=== PATIENT | female | born 1980 | race Caucasian/White ===

== ENCOUNTER 2021-12-24 11:06 | Outpatient (REF) | payer MEDICARE, SELFPAY ==
[2021-12-24 14:06] LABS: Hemoglobin 13.6 g/dl (12.0-16.0); Mean Corpuscular HGB Conc 33.2 g/dl (31.0-35.0); Mean Corpuscular Hemoglobin 29.8 pg (27.0-33.0); Mean Corpuscular Volume 89.9 fL (80.0-98.0); Mean Platelet Volume 9.9 fL (9.4-12.3); Platelet Count 232 X10*3/uL (160-400); Red Blood Count 4.56 X10*6/uL (4.20-5.50); Red Cell Distribution Width 12.9 % (11.0-16.0); White Blood Count 4.9 X10*3/uL (4.8-10.8)
[2021-12-24 14:41] LABS: Alanine Aminotransferase 25 U/L (0-31); Albumin Level 4.3 g/dL (3.5-5.0); Alkaline Phosphatase 46 U/L (39-117); Anion Gap 15 (12-20); Aspartate Amino Transferase 20 U/L (5-31); Bilirubin Total 0.5 mg/dL (0.0-1.0); Blood Urea Nitrogen 20 mg/dL (9-16); Calcium 9.2 mg/dL (8.4-10.2); Carbon Dioxide 26 mmol/L (22-29); Chloride 102 mmol/L (96-108); Cholesterol 222 mg/dL; Estimated Glomerular Filt Rate > 60; Glucose Random 88 mg/dL (60-115); HDL Cholesterol 63 mg/dL; LDL Cholesterol Calculated 147 mg/dl; Potassium 4.2 mmol/L (3.3-5.1); Sodium 139 mmol/L (135-145); Total Protein 7.6 g/dL (6.5-8.0); Triglycerides 63 mg/dL
[2021-12-24 14:46] LABS: TSH reflex Free T4 0.98 uIU/mL (0.32-4.0)
== END 2021-12-24 11:07 | disposition home or self-care (01) ==
LOC: HO.WFDLDS 11:06
PROVIDERS: Visit Provider Hospitalist
DX: Z00.00 Encounter for general adult medical examination without abnormal findings (principal)
CPT/HCPCS: 36415; 80053; 80061; 84443; 85027

== ENCOUNTER 2023-04-08 13:17 | Outpatient (AMB) | payer MEDICARE, SELFPAY ==
[2023-04-08 13:21] VITALS: BP 144/78; PULSE 102; RESP 13; TEMP 36.4; O2SAT 99; BMI 29.7
--- NOTE | 2023-04-08 13:21 | MHC.PC.OV ---
Vital Signs 04/08/23 13:21 04/08/23 13:56 Height 5 ft 6 in Weight 184 lb 4 oz BMI 29.7 BP 144/78 H 130/82 Blood Pressure Location Rt brachial Rt brachial Position Sitting Sitting Respiration 13 Pulse 102 H 84 Pulse Source Pulse Oximeter Auscultation Temp 97.6 F Temp Source Temporal Artery Scan Pulse Oximetry (%) 99 Oxygen Delivery Method Room Air Intake Visit Reasons: Med review-Trans of care Intake Note: Patient states that she no longer has a psychiatrist due to him having a stroke and hes no longer practicing as of right now. Patient states that the records are now being controlled through a 3rd alliance party and patient has to wait for access information in order to receive them. Patient hasn't been able to get any of her meds and would like a referral to psychology as well as her meds to be ordered if possible. Environmental Officer Required: No Accompanied by: Self / Same As Patient Allergies Sulfa (Sulfonamide Antibiotics) [SULFA (SULFONAMIDE ANTIBIOTICS)] Allergy (Intermediate, Verified 04/08/23 13:32) HIVES Tobacco use date assessed: 07/10/22 Dental Screening Dental Screen Date: 04/08/23 Did you have a dental visit in the last 12 months?: Yes Did you have a dental problem in the last 6 months where you did not have access to dental care?: No Was dental information given to patient?: Patient has dentist HPI HPI Comments History of Present Illness Details 42-year-old female presents for transfer of care Her former PCP is who is no longer with the practice. Her last office visit was in July 2022. Her last blood work was over a year ago She has history of ADHD, bipolar 2 disorder, personality disorder, and autism She notes that she ran out of all her meds except for Lorazepam. She is on Capriprazine, dextroamphetamine-amphatamine, lorazepam, vilazodone, and medroxyprogestrone She notes that she was followed by Dr. You, psychiatrist and therapist who has not been practicing since early last last month. She requests a referral to a psychiatrist. She notes that she tried to establish with a new psychiatrist/therapist but her work schedule did not allow She notes that I crashed. I'm in a very bad depression. She notes that she is not motivated to get out of bed or get things done She notes that she exercises at the gym every day [facility] Medical History (Updated 04/08/23 @ 14:08 by Ziggy Morel CNP) Anxiety Depression Personality disorder in adult ADHD Autism Surgical History (Updated 04/08/23 @ 13:33 by Amanda Willingham MA) [place] teeth extracted Family History Father Enlarged prostate Hypertension Obesity No family history of mental disorder Mother Pulmonary embolism Diabetes Sleep apnea No family history of mental disorder Paternal Grandmother Parkinson disease Social History Housing: House Patient Tobacco Use Status: Never used Tobacco e-Cigarette/Vaping Use: Never Used service: No Current occupational status: employed Current occupation: [employer] Cognitive needs: No Hearing needs: No Vision needs: No Questionnaire PHQ-9 Over the last 2 weeks, how often have you been bothered by any of the following problems? 1. Little interest or pleasure in doing things: nearly every day 2. Feeling down, depressed, or hopeless: nearly every day 3. Trouble falling or staying asleep, or sleeping too much: nearly every day 4. Feeling tired or having little energy: not at all 5. Poor appetite or overeating: not at all 6. Feeling bad about yourself - or that you are a failure or have let yourself or your family down: nearly every day 7. Trouble concentrating on things, such as reading the newspaper or watching television: nearly every day 8. Moving or speaking so slowly that other people could have noticed. Or the opposite - being so fidgety or restless that you have been moving around a lot more than usual: not at all 9. Thoughts that you would be better off or of hurting yourself in some way: not at all Total score: 15 Depression Screening Interpretation: Positive Depression Screening Follow-up: Existing condition, In treatment and Community Mental Health Worker F/U Depression Screening Done: Yes 54098 - PHQ-9 Billing: Yes Source: Developed by Drs. Jose L Schwartz, Vanessa Shcmitt, Andrew Walsh and colleagues, with an educational manoj from [employer]. Thrive Questionnaire Date Thrive assessed: 04/08/23 I am a: Patient What is your living situation today?: I have a steady place to live Within the past 12 months, did the food you bought not last and you didn't have the money to get more?: Never true Within the past 12 months, did you worry whether your food would run out before you got money to buy more?: Never true Do you have trouble paying for medicines?: Yes Do you have trouble getting transportation to medical appointments?: No Do you have trouble paying your heating and electricity bill?: No Do you have trouble taking care of your child, family member or friend?: No Do you have trouble with day-to-day activities such as bathing, preparing meals, shopping, managing finances, etc.?: No Are you currently unemployed and looking for a job?: No Are you interested in more education?: No Please select the resources that you would like help with: None Currently or been in a relationship where the following occur: no concerns reported AUDIT C Alcohol Use Questionnaire (AUDIT-C) 1. How often do you have a drink containing alcohol?: Never 3. How often do you have six or more drinks on one occasion?: Never Total Score: 0 AFTAB-7 AMB Questionnaire AFTAB-7 Date AFTAB - 7 assessed: 04/08/23 Feeling nervous, anxious, or on edge: 3 = Nearly every day Not being able to stop or control worryin = Nearly every day Worrying too much about different things: 3 = Nearly every day Trouble relaxin = Nearly every day Being so restless that it is hard to sit still: 3 = Nearly every day Becoming easily annoyed or irritable: 3 = Nearly every day Feeling afraid as if something awful might happen: 3 = Nearly every day Total AFTAB-7 score (0-4 normal; 5-9 mild; 10-14 moderate; 15-21 severe): 21 Source: Developed by Drs. Jose L Schwartz, Vanessa Schmitt, Andrew Walsh and colleagues, with an educational manoj from [employer]. AFTAB-7 Assessment Billing AFTAB-7 Assessment Tool: AFTAB-7 Assessment 83342 Review of Systems Const Details: Const Denies chills, Denies fatigue, Denies fever(s), Denies headache(s) and Denies weakness ENT Denies dizziness and Denies headache(s) Card Denies chest pain, Denies lightheadedness, Denies dyspnea and Denies other (Palpitations) Resp Denies cough, Denies dyspnea, Denies wheezing and Denies other ( shortness of breath) GI Denies abdominal pain, Denies melena, Denies hematochezia, Denies change in bowel habits, Denies dyspepsia and Denies nausea Denies hematuria and Denies dysuria Musc Denies abnormal gait, Denies myalgias, Denies arthralgias, Denies numbness and Denies tingling Skin/Breast Denies rash, Denies unusual bruising and Denies wounds Neuro Denies abnormal gait, Denies dizziness, Denies headache(s), Denies memory loss, Denies numbness, Denies Sensory deficit (Neuro), Denies tingling and Denies weakness Psych Reports anxiety, Reports depression, Denies memory loss Endo Denies cold intolerance, Denies fatigue, Denies heat intolerance, Denies polydipsia and Denies polyuria Aller/Immun Denies wheezing Physical exam (Primary Care) Vital Signs: Last Vital Signs Temp 97.6 F 04/08/23 13:21 Pulse 84 04/08/23 13:56 Resp 13 04/08/23 13:21 BP 130/82 04/08/23 13:56 Pulse Ox 99 04/08/23 13:21 Oxygen Delivery Method Room Air 04/08/23 13:21 BMI result Body Mass Index 29.7 Tobacco/Smoking Status: Tobacco use Status Tobacco use date assessed 07/10/22 04/08/23 13:39 Patient Tobacco Use Status Never used Tobacco 04/08/23 13:39 e-Cigarette/Vaping Use Never Used 04/08/23 13:39 PHQ-9: PHQ-9 Score PHQ-9: Total score 15 04/08/23 13:46 Depression Screening Interpretation: Positive Depression Screening Follow-up: Existing condition, In treatment and Community Mental Health Worker F/U Thrive Assessment: Date of Thrive Assessment Date Thrive assessed 04/08/23 04/08/23 13:39 Currently or been in a relationship where the following occur: no concerns reported Const Other: General: no acute distress and well developed Nutritional Appearance: well nourished Orientation/consciousness: patient oriented x3 HENMT Head: Yes normocephalic and Yes atraumatic Eyes General: appearance normal, both eyes and all related structures Pupils: Equal, round and reactive pupils present EOM: EOMs intact bilaterally Resp Effort & Inspection: normal respiratory effort Auscultation: clear to auscultation bilaterally Cardio Rate: regular rate Rhythm: regular rhythm Heart sounds: S1 normal heart sound present, S2 normal heart sound present, no gallops, no murmurs and no rubs GI Palpation (GI): No Abdominal aortic bruit present, Soft to palpation, nontender, No hepatosplenomegaly present and No Rebound tenderness present Auscultation: normal bowel sounds General: Yes no CVA tenderness Back/Spine/Pelvis Back: no CVA tenderness Cervical Spine: cervical ROM normal and No Cervical spine tenderness Thoracic/Lumbar Spine: thoraco-lumbar ROM normal, No pain with thoraco-lumbar ROM, No thoracic spinal tenderness and No lumbar spinal tenderness Extrem General: Yes normal to inspection, No edema and No calf tenderness Skin General: warm and dry. Normal skin color. Normal skin turgor Neuro General: patient oriented x3, gait normal and no focal neuro deficit Cranial nerves: Yes Equal, round and reactive pupils present Cognition (Neuro): normal cognition Gait exam (Neuro): Normal gait present Sensory Exam: No Sensory deficit (Neuro) Psych Appearance: grossly normal Affect: normal affect Attitude: cooperative Thought process: Normal thought process present Assessment and Plan Assessment & Plan (1) Bipolar 2 disorder: Code(s): F31.81 - Bipolar II disorder Plan: She reports severe depression She has been out of her psychotropic medications PHQ-9 score reveals moderately severe depression and severe anxiety respectively Vilazodone and dextroamphetamine-amphetamine ordered. Take as prescribed Take Ativan as prescribed Routine exercise encouraged She met with the community navigator who will refer her to a psychiatrist/therapist Follow-up in 2 weeks or return sooner with worsening or new symptoms Verbalized understanding and agreed with treatment plan (2) ADHD: Code(s): F90.9 - Attention-deficit hyperactivity disorder, unspecified type Plan: As above (3) Laboratory tests ordered as part of a complete physical exam (CPE): Code(s): Z00.00 - Encounter for general adult medical examination without abnormal findings Plan: Fasting labs ordered as part of a complete physical exam. Advised to fast for at least 10 hours before getting labs drawn. May drink water Verbalized understanding and agreed with treatment plan. Orders: Orders Lipid Panel Today Z00.00 - Encounter for general adult medical examination without abnormal findings UA CC w/rflx Micro + Cult Today Z00.00 - Encounter for general adult medical examination without abnormal findings Complete Blood Count Auto Diff Today Z00.00 - Encounter for general adult medical examination without abnormal findings Comprehensive [place]. Panel Fast Today Z00.00 - Encounter for general adult medical examination without abnormal findings TSH reflex Free T4 Today Z00.00 - Encounter for general adult medical examination without abnormal findings Medications: New dextroamphetamine-amphetamine 20 mg 1 tab PO TID 30 days 90 tabs 0RF Changed From vilazodone must administer with a meal/food 20 mg PO DAILY 90 tabs 0RF To vilazodone must administer with a meal/food 20 mg PO DAILY 30 days 30 tabs 3RF Coding Level of Care Code Est Pt Level 4 (13699) Diagnoses Bipolar 2 disorder F31.81 ADHD F90.9 Laboratory tests ordered as part of a complete physical exam (CPE) Z00.00 Additional Codes AFTAB-7 Assessment Billing - AFTAB-7 Assessment Tool: AFTAB-7 Assessment 89998 ([id number])
[2023-04-08 13:56] VITALS: BP 130/82; PULSE 84
== END 2023-04-08 14:17 | disposition home or self-care (01) ==
PROVIDERS: PCP Nurse Practitioner Family; Visit Provider Nurse Practitioner Family
DX: F31.81 Bipolar II disorder (principal); F90.9 Attention-deficit hyperactivity disorder, unspecified type
CPT/HCPCS: 96127; 99214

== ENCOUNTER 2023-04-24 08:27 | Outpatient (REF) | payer MEDICARE, SELFPAY ==
[2023-04-24 11:40] LABS: MANUAL DIFF FLAG NO
[2023-04-24 11:57] LABS: Basophils Percent Auto 0.7 % (0-2); Eosinophils Absolute Auto 0.1 X10*3/uL (0.0-0.4); Eosinophils Percent Auto 1.3 % (0-4); Hemoglobin 13.6 g/dl (12.0-16.0); Imm Gran Abs Auto 0.01 X10*3/uL (0.00-0.03); Imm Gran Pct Auto 0.2 % (0.0-0.4); Lymphocytes Absolute Auto 1.6 X10*3/uL (1.2-4.9); Lymphocytes Percent Auto 29.8 % (20-40); Mean Corpuscular HGB Conc 33.2 g/dl (31.0-35.0); Mean Corpuscular Hemoglobin 30.3 pg (27.0-33.0); Mean Corpuscular Volume 91.3 fL (80.0-98.0); Mean Platelet Volume 10.2 fL (9.4-12.3); Monocytes Absolute Auto 0.3 X10*3/uL (0.1-1.2); Monocytes Percent Auto 6.3 % (2-11); Neutrophils Absolute Auto 3.3 x10*3/uL (2.0-8.3); Neutrophils Percent Auto 61.7 % (45-73); Platelet Count 215 X10*3/uL (160-400); Red Blood Count 4.49 X10*6/uL (4.20-5.50); Red Cell Distribution Width 13.1 % (11.0-16.0); White Blood Count 5.4 X10*3/uL (4.8-10.8)
[2023-04-24 11:59] LABS: Appearance Urine Cloudy; Color Urine Yellow; Glucose Urine UA Negative (Negative); Leukocyte Esterase Urine Negative (Negative); Nitrite Urine Negative (Negative); Specific Gravity - Urine 1.025 (1.005-1.025); Urine Blood Negative (Negative); Urine Ketones Negative (Negative); Urine Protein Negative (Neg-Trace)
[2023-04-24 13:16] LABS: Alanine Aminotransferase 19 U/L (0-31); Albumin Level 4.2 g/dL (3.5-5.0); Alkaline Phosphatase 51 U/L (39-117); Anion Gap 12 (12-20); Aspartate Amino Transferase 15 U/L (5-31); Bilirubin Total 0.5 mg/dL (0.0-1.0); Blood Urea Nitrogen 19 mg/dL (9-16); Calcium 9.4 mg/dL (8.4-10.2); Carbon Dioxide 26 mmol/L (22-29); Chloride 105 mmol/L (96-108); Cholesterol 188 mg/dL (<200); Estimated Glomerular Filt Rate > 60; Glucose Fasting 87 mg/dL (60-99); HDL Cholesterol 68 mg/dL (>40); LDL Cholesterol Calculated 110 mg/dL (<100); Potassium 3.8 mmol/L (3.3-5.1); Sodium 139 mmol/L (135-145); Total Protein 7.4 g/dL (6.5-8.0); Triglycerides 50 mg/dL (<150)
== END 2023-04-24 08:28 | disposition home or self-care (01) ==
LOC: HO.HMGCLDS 08:27
PROVIDERS: PCP Nurse Practitioner Family; Visit Provider Nurse Practitioner Family
DX: Z00.00 Encounter for general adult medical examination without abnormal findings (principal)
CPT/HCPCS: 36415; 80053; 80061; 81003; 84443; 85025

== ENCOUNTER 2023-04-28 08:05 | Outpatient (AMB) | payer MEDICARE, SELFPAY ==
[2023-04-28 08:10] VITALS: BP 114/70; PULSE 56; RESP 13; TEMP 36.5; O2SAT 99; BMI 29.7
--- NOTE | 2023-04-28 08:10 | MHC.PC.OV ---
Vital Signs 04/28/23 08:10 Height 5 ft 6 in Weight 184 lb 2 oz BMI 29.7 BP 114/70 Blood Pressure Location Rt brachial Position Sitting Respiration 13 Pulse 56 Pulse Source Pulse Oximeter Temp 97.7 F Temp Source Temporal Artery Scan Pulse Oximetry (%) 99 Oxygen Delivery Method Room Air Intake Visit Reasons: f/u bipolar and ADHD Intake Note: Patient states that she has a psychiatrist appt next month and is concerned that she may run out of her meds before that appt. Case Sealer Required: No Accompanied by: Self / Same As Patient Allergies Sulfa (Sulfonamide Antibiotics) [SULFA (SULFONAMIDE ANTIBIOTICS)] Allergy (Intermediate, Verified 04/28/23 08:19) HIVES Medication List - Last Reconciled 04/28/23 by Ziggy Morel CNP aspirin 81 mg PO DAILY dextroamphetamine-amphetamine 20 mg 1 tab PO TID 30 days lorazepam 1 mg PO TID PRN medroxyprogesterone 10 mg PO DAILY vilazodone 20 mg PO DAILY 30 days Tobacco use date assessed: 07/10/22 Dental Screening Dental Screen Date: 04/28/23 Did you have a dental visit in the last 12 months?: Yes Did you have a dental problem in the last 6 months where you did not have access to dental care?: No Was dental information given to patient?: Patient has dentist HPI HPI Comments History of Present Illness Details 42-year-old female presents for anxiety, depression, bipolar, and ADHD follow-up She transferred care about 3 weeks ago Vilazodone and dextroamphetamine-amphetamine re-ordered as she was out of the medications x 1 month. She is also on PRN Lorazepam. She admits to taking her medications as prescribed without adverse reactions She notes significant improvement of her mood symptoms. She states that she is still depressed. She denies SI/HI, VH/AH. No sleep disturbance, no loss of appetite or weight loss She notes she has an appointment with a applied psychology professor next month [facility] Medical History (Updated 04/28/23 @ 08:22 by Ziggy Morel CNP) Anxiety Depression Personality disorder in adult ADHD Autism Surgical History [place] teeth extracted Family History Father Enlarged prostate Hypertension Obesity No family history of mental disorder Mother Pulmonary embolism Diabetes Sleep apnea No family history of mental disorder Paternal Grandmother Parkinson disease Social History Housing: House Patient Tobacco Use Status: Never used Tobacco e-Cigarette/Vaping Use: Never Used service: No Current occupational status: employed Current occupation: [employer] Cognitive needs: No Hearing needs: No Vision needs: No Questionnaire PHQ-9 Over the last 2 weeks, how often have you been bothered by any of the following problems? 1. Little interest or pleasure in doing things: not at all 2. Feeling down, depressed, or hopeless: several days 3. Trouble falling or staying asleep, or sleeping too much: not at all 4. Feeling tired or having little energy: not at all 5. Poor appetite or overeating: several days 6. Feeling bad about yourself - or that you are a failure or have let yourself or your family down: more than half the days 7. Trouble concentrating on things, such as reading the newspaper or watching television: not at all 8. Moving or speaking so slowly that other people could have noticed. Or the opposite - being so fidgety or restless that you have been moving around a lot more than usual: not at all 9. Thoughts that you would be better off or of hurting yourself in some way: not at all Total score: 4 Depression Screening Interpretation: Negative Depression Screening Done: Yes 30106 - PHQ-9 Billing: Yes Source: Developed by Drs. Jose L Schwartz, Vanessa Schmitt, Andrew Walsh and colleagues, with an educational manoj from [employer]. Thrive Questionnaire Date Thrive assessed: 04/08/23 AFTAB-7 AMB Questionnaire AFTAB-7 Date AFTAB - 7 assessed: 04/28/23 Feeling nervous, anxious, or on edge: 2 = More than half the days Not being able to stop or control worryin = More than half the days Worrying too much about different things: 2 = More than half the days Trouble relaxin = More than half the days Being so restless that it is hard to sit still: 2 = More than half the days Becoming easily annoyed or irritable: 1 = Several days Feeling afraid as if something awful might happen: 3 = Nearly every day Total AFTAB-7 score (0-4 normal; 5-9 mild; 10-14 moderate; 15-21 severe): 14 Source: Developed by Drs. Jose L Schwartz, Vanessa Schmitt, Andrew Walsh and colleagues, with an educational manoj from [employer]. AFTAB-7 Assessment Billing AFTAB-7 Assessment Tool: AFTAB-7 Assessment 63530 Review of Systems Const Details: Const Denies chills, Denies fatigue, Denies fever(s), Denies headache(s) and Denies weakness ENT Denies dizziness and Denies headache(s) Card Denies chest pain, Denies lightheadedness, Denies dyspnea and Denies other (Palpitations) Resp Denies cough, Denies dyspnea, Denies wheezing and Denies other ( shortness of breath) GI Denies abdominal pain, Denies melena, Denies hematochezia, Denies change in bowel habits, Denies dyspepsia and Denies nausea Denies hematuria and Denies dysuria Musc Denies abnormal gait, Denies myalgias, Denies arthralgias, Denies numbness and Denies tingling Skin/Breast Denies rash, Denies unusual bruising and Denies wounds Neuro Denies abnormal gait, Denies dizziness, Denies headache(s), Denies memory loss, Denies numbness, Denies Sensory deficit (Neuro), Denies tingling and Denies weakness Psych Denies anxiety, Reports depression, Denies memory loss Endo Denies cold intolerance, Denies fatigue, Denies heat intolerance, Denies polydipsia and Denies polyuria Aller/Immun Denies wheezing Physical exam (Primary Care) Vital Signs: Last Vital Signs Temp 97.7 F 04/28/23 08:10 Pulse 56 04/28/23 08:10 Resp 13 04/28/23 08:10 BP 114/70 04/28/23 08:10 Pulse Ox 99 04/28/23 08:10 Oxygen Delivery Method Room Air 04/28/23 08:10 BMI result Body Mass Index 29.7 Tobacco/Smoking Status: Tobacco use Status Tobacco use date assessed 07/10/22 04/08/23 13:39 Patient Tobacco Use Status Never used Tobacco 04/08/23 13:39 e-Cigarette/Vaping Use Never Used 04/08/23 13:39 Depression Screening Interpretation: Negative Thrive Assessment: Date of Thrive Assessment Date Thrive assessed 04/08/23 04/08/23 14:37 Const Other: General: no acute distress and well developed Nutritional Appearance: well nourished Orientation/consciousness: patient oriented x3 [facility] Head: Yes normocephalic and Yes atraumatic Eyes General: appearance normal, both eyes and all related structures Pupils: Equal, round and reactive pupils present EOM: EOMs intact bilaterally Resp Effort & Inspection: normal respiratory effort Auscultation: clear to auscultation bilaterally Cardio Rate: regular rate Rhythm: regular rhythm Heart sounds: S1 normal heart sound present, S2 normal heart sound present, no gallops, no murmurs and no rubs GI Palpation (GI): No Abdominal aortic bruit present, Soft to palpation, nontender, No hepatosplenomegaly present and No Rebound tenderness present Auscultation: normal bowel sounds General: Yes no CVA tenderness Back/Spine/Pelvis Back: no CVA tenderness Cervical Spine: cervical ROM normal and No Cervical spine tenderness Thoracic/Lumbar Spine: thoraco-lumbar ROM normal, No pain with thoraco-lumbar ROM, No thoracic spinal tenderness and No lumbar spinal tenderness Extrem General: Yes normal to inspection, No edema and No calf tenderness Skin General: warm and dry. Normal skin color. Normal skin turgor Lesions: no lesions Rashes: no rashes Trauma: no lacerations or abrasions Wounds: no wounds Nails: normal Neuro General: patient oriented x3, gait normal and no focal neuro deficit Cranial nerves: Yes Equal, round and reactive pupils present Cognition (Neuro): normal cognition Gait exam (Neuro): Normal gait present Sensory Exam: No Sensory deficit (Neuro) Psych Appearance: grossly normal Affect: normal affect Attitude: cooperative Thought process: Normal thought process present Assessment and Plan Assessment & Plan (1) Anxiety: Code(s): F41.9 - Anxiety disorder, unspecified Plan: Reports significant improvement of her symptoms but continues to feel depressed AFTAB-7 score is normal. PHQ-9 score reveals moderate depression Continue current treatment regimen. Instructed that the medication may take 4-6 weeks to be therapeutic Routine exercise encouraged Follow-up in 2 weeks or return sooner with worsening or new symptoms She has a follow-up appointment with Psychiatry in a month Verbalized understanding and agreed with treatment plan Recent labs reviewed with the patient; unremarkable findings (2) Depression: Code(s): F32.A - Depression, unspecified Plan: As above (3) Severe bipolar II disorder, depressed, with anxious distress: Code(s): F31.81 - Bipolar II disorder Plan: As above (4) ADHD: Code(s): F90.9 - Attention-deficit hyperactivity disorder, unspecified type Plan: As above Coding Level of Care Code Est Pt Level 3 (42621) Diagnoses Anxiety F41.9 Depression F32.A Severe bipolar II disorder, depressed, with anxious distress F31.81 ADHD F90.9 Additional Codes AFTAB-7 Assessment Billing - AFTAB-7 Assessment Tool: AFTAB-7 Assessment [id number] ([id number])
== END 2023-04-28 08:40 | disposition home or self-care (01) ==
PROVIDERS: PCP Nurse Practitioner Family; Visit Provider Nurse Practitioner Family
DX: F41.9 Anxiety disorder, unspecified (principal); F31.81 Bipolar II disorder; F90.9 Attention-deficit hyperactivity disorder, unspecified type
CPT/HCPCS: 99213

== ENCOUNTER 2023-09-04 11:44 | Outpatient (AMB) | payer MEDICARE, SELFPAY ==
--- NOTE | 2023-09-04 11:47 | A.OFFPC_ITS ---
Vital Signs 09/04/23 11:48 Height 5 ft 6 in Weight 183 lb 8 oz BMI 29.6 BP 102/70 Blood Pressure Location Rt brachial Position Sitting Respiration 14 Pulse 81 Pulse Source Pulse Oximeter Temp 97.6 F Temp Source Temporal Artery Scan Pulse Oximetry (%) 99 Oxygen Delivery Method Room Air Intake Visit Reasons: Follow up mental health Vessel Liner Required: No Accompanied by: Self / Same As Patient Allergies Sulfa (Sulfonamide Antibiotics) [SULFA (SULFONAMIDE ANTIBIOTICS)] Allergy (Intermediate, Verified 09/04/23 12:00) HIVES Medication List - Last Reconciled 09/04/23 by Ziggy Morel CNP aripiprazole (Abilify) 15 mg PO DAILY aspirin 81 mg PO DAILY hydroxyzine pamoate (Vistaril) 25 mg PO BID PRN medroxyprogesterone 10 mg PO DAILY olanzapine (Zyprexa) 5 mg PO DAILY propranolol 20 mg PO BID Tobacco use date assessed: 09/04/23 Dental Screening Dental Screen Date: 09/04/23 Did you have a dental visit in the last 12 months?: Yes Did you have a dental problem in the last 6 months where you did not have access to dental care?: No Was dental information given to patient?: Patient has dentist HPI HPI Comments History of Present Illness Details 43-year-old female presents for updated diagnoses of schizoaffective disorder bipolar type, generalized anxiety disorder, PTSD, alcohol use disorder, and cannabis use disorder She notes that she established care with [facility] and is followed by a psychiatrist every 2 weeks and therapist weekly She is on Abilify, hydroxyzine, olanzapine, and propranolol. She admits to taking her medications as prescribed without adverse reactions She reports improved anxiety, depressive symptoms No SI, HI, AVH No acute symptoms She was admitted in inpatient psychiatry [facility] for 22 days for SI. Prior to that admission, she was in Rehab for 7 days for excessive alcohol consumption. She is currently at a partial program at [place] and will be there for a total of 2 weeks, ending next week. She has not drank alcohol since she was admitted on 07/31/2023. She has been out of work, leave of absence, during her treatment and wants to return by September 20. She requests clearance form signed from her employer to return to work. 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 1. Little interest or pleasure in doing things: several days 2. Feeling down, depressed, or hopeless: not at all 3. Trouble falling or staying asleep, or sleeping too much: more than half the days 4. Feeling tired or having little energy: several days 5. Poor appetite or overeating: not at all 6. Feeling bad about yourself - or that you are a failure or have let yourself or your family down: not at all 7. Trouble concentrating on things, such as reading the newspaper or watching television: several days 8. Moving or speaking so slowly that other people could have noticed. Or the opposite - being so fidgety or restless that you have been moving around a lot more than usual: not at all 9. Thoughts that you would be better off or of hurting yourself in some way: not at all Total score: 5 Depression Screening Interpretation: Negative Depression Screening Done: Yes 97009 - PHQ-9 Billing: Yes Source: Developed by Drs. Jose L Schwartz, Vanessa Schmitt, Andrew Walsh and colleagues, with an educational manoj from [employer]. Thrive Questionnaire Date Thrive assessed: 04/08/23 AFTAB-7 AMB Questionnaire AFTAB-7 Date AFTAB - 7 assessed: 09/04/23 Feeling nervous, anxious, or on edge: 1 = Several days Not being able to stop or control worryin = Several days Worrying too much about different things: 1 = Several days Trouble relaxin = Several days Being so restless that it is hard to sit still: 1 = Several days Becoming easily annoyed or irritable: 1 = Several days Feeling afraid as if something awful might happen: 1 = Several days Total AFTAB-7 score (0-4 normal; 5-9 mild; 10-14 moderate; 15-21 severe): 7 Source: Developed by Drs. Jose L Schwartz, Vanessa Schmitt, Andrew Walsh and colleagues, with an educational manoj from [employer]. AFTAB-7 Assessment Billing AFTAB-7 Assessment Tool: AFTAB-7 Assessment 13207 Review of Systems Const Details: Const Denies chills, Denies fatigue, Denies fever(s), Denies headache(s) and Denies weakness ENT Denies dizziness and Denies headache(s) Card Denies chest pain, Denies lightheadedness, Denies dyspnea and Denies other (Palpitations) Resp Denies cough, Denies dyspnea, Denies wheezing and Denies other ( shortness of breath) GI Denies abdominal pain, Denies melena, Denies hematochezia, Denies change in bowel habits, Denies dyspepsia and Denies nausea Denies hematuria and Denies dysuria Musc Denies abnormal gait, Denies myalgias, Denies arthralgias, Denies numbness and Denies tingling Skin/Breast Denies rash, Denies unusual bruising and Denies wounds Neuro Denies abnormal gait, Denies dizziness, Denies headache(s), Denies memory loss, Denies numbness, Denies Sensory deficit (Neuro), Denies tingling and Denies weakness Psych Denies anxiety, Denies depression, Denies memory loss Endo Denies cold intolerance, Denies fatigue, Denies heat intolerance, Denies polydipsia and Denies polyuria Aller/Immun Denies wheezing Physical exam (Primary Care) Vital Signs: Last Vital Signs Temp 97.6 F 09/04/23 11:48 Pulse 81 09/04/23 11:48 Resp 14 09/04/23 11:48 BP 102/70 09/04/23 11:48 Pulse Ox 99 09/04/23 11:48 Oxygen Delivery Method Room Air 09/04/23 11:48 BMI result Body Mass Index 29.6 Tobacco/Smoking Status: Tobacco use Status Tobacco use date assessed 09/04/23 09/04/23 12:00 Patient Tobacco Use Status Never used Tobacco 09/04/23 12:00 e-Cigarette/Vaping Use Never Used 09/04/23 12:00 PHQ-9: PHQ-9 Score PHQ-9: Total score 5 09/04/23 12:00 Depression Screening Interpretation: Negative Thrive Assessment: Date of Thrive Assessment Date Thrive assessed 04/08/23 09/04/23 12:00 Const Other: General: no acute distress and well developed Nutritional Appearance: well nourished Orientation/consciousness: patient oriented x3 HENMT Head: Yes normocephalic and Yes atraumatic Eyes General: appearance normal, both eyes and all related structures Pupils: Equal, round and reactive pupils present EOM: EOMs intact bilaterally Resp Effort & Inspection: normal respiratory effort Auscultation: clear to auscultation bilaterally Cardio Rate: regular rate Rhythm: regular rhythm Heart sounds: S1 normal heart sound present, S2 normal heart sound present, no gallops, no murmurs and no rubs GI Palpation (GI): No Abdominal aortic bruit present, Soft to palpation, nontender, No hepatosplenomegaly present and No Rebound tenderness present Auscultation: normal bowel sounds General: Yes no CVA tenderness Back/Spine/Pelvis Back: no CVA tenderness Cervical Spine: cervical ROM normal and No Cervical spine tenderness Thoracic/Lumbar Spine: thoraco-lumbar ROM normal, No pain with thoraco-lumbar ROM, No thoracic spinal tenderness and No lumbar spinal tenderness Extrem General: Yes normal to inspection, No edema and No calf tenderness Skin General: warm and dry. Normal skin color. Normal skin turgor Neuro General: patient oriented x3, gait normal and no focal neuro deficit Cranial nerves: Yes Equal, round and reactive pupils present Cognition (Neuro): normal cognition Gait exam (Neuro): Normal gait present Sensory Exam: No Sensory deficit (Neuro) Psych Appearance: grossly normal Affect: normal affect Attitude: cooperative Thought process: Normal thought process present Assessment and Plan Assessment & Plan (1) Schizoaffective disorder, bipolar type: Code(s): F25.0 - Schizoaffective disorder, bipolar type Plan: Reports improved symptoms on current treatment regimen She has not drank alcohol since 07/31/2023 No acute symptoms PHQ-9 and AFTAB-7 scores revealed mild depression and anxiety Continue current treatment regimen Follow-up with psychiatrist and therapist as planned Routine exercise encouraged Leave of absence form from her employer signed for patient to return to work on 09/21/2023 Return in 1 month for an extended physical exam or sooner with symptoms or concerns Verbalized understanding and agreed with treatment plan (2) Alcohol use disorder: Code(s): F10.90 - Alcohol use, unspecified, uncomplicated Plan: As above (3) Generalized anxiety disorder: Code(s): F41.1 - Generalized anxiety disorder Plan: As above (4) PTSD (post-traumatic stress disorder): Code(s): F43.10 - Post-traumatic stress disorder, unspecified Plan: As above (5) Cannabis use disorder: Code(s): F12.90 - Cannabis use, unspecified, uncomplicated Plan: As above Coding Level of Care Code Est Pt Level 4 (89994) Complex EM visit Add On G2211 Diagnoses Schizoaffective disorder, bipolar type F25.0 Alcohol use disorder F10.90 Generalized anxiety disorder F41.1 PTSD (post-traumatic stress disorder) F43.10 Cannabis use disorder F12.90 Additional Codes AFTAB-7 Assessment Billing - AFTAB-7 Assessment Tool: AFTAB-7 Assessment 76127 ([id number])
[2023-09-04 11:48] VITALS: BP 102/70; PULSE 81; RESP 14; TEMP 36.4; O2SAT 99; BMI 29.6
== END 2023-09-04 12:40 | disposition home or self-care (01) ==
PROVIDERS: PCP Nurse Practitioner Family; Visit Provider Nurse Practitioner Family
DX: F25.0 Schizoaffective disorder, bipolar type (principal); F10.90 Alcohol use, unspecified, uncomplicated; F41.1 Generalized anxiety disorder; F43.10 Post-traumatic stress disorder, unspecified; F12.90 Cannabis use, unspecified, uncomplicated
CPT/HCPCS: 99214; G2211

== ENCOUNTER 2024-01-12 09:50 | Outpatient (AMB) | payer MEDICARE, SELFPAY ==
--- NOTE | 2024-01-12 10:25 | MHC.OFFWIV ---
Intake Vital Signs 01/12/24 10:27 Height 5 ft 6 in Weight 183 lb BMI 29.5 BP 122/80 Blood Pressure Location Rt brachial Position Sitting Pulse 84 Pulse Source Pulse Oximeter Temp 98.8 F Temp Source Oral Pulse Oximetry (%) 98 Oxygen Delivery Method Room Air Intake Visit Reasons: EP tested+ for covid PT in car [phone] Intake Note: Patient here because she tested positive for covid this morning and is looking to get paxlovid. Patient Tobacco Use Status: Never used Tobacco Allergies Sulfa (Sulfonamide Antibiotics) [SULFA (SULFONAMIDE ANTIBIOTICS)] Allergy (Intermediate, Verified 01/12/24 10:26) HIVES Do you need a note to return to daycare/school/sports/work: No HPI HPI Comments History of Present Illness Details Patient is a 43yo F who presents to office with covid She has hx of daily alcohol use, cannabis use disorder, PTSD, Anxiety She states she tested + for COVID today Her + and had paxlovid and it helped She said yesterday night onset Fever, chills, body aches, fatigue Minimal cough and congestion No other complaints No improving or worsening symptoms No pain, 0/10 PFSH Medical History Anxiety Depression Personality disorder in adult ADHD Autism Surgical History [place] teeth extracted Family History Father Enlarged prostate Hypertension Obesity No family history of mental disorder Mother Pulmonary embolism Diabetes Sleep apnea No family history of mental disorder Paternal Grandmother Parkinson disease Social History Housing: House Patient Tobacco Use Status: Never used Tobacco e-Cigarette/Vaping Use: Never Used service: No Current occupational status: employed 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 [employer] Cognitive needs: No Hearing needs: No Vision needs: No Review of Systems Const Reports body aches, Reports chills, Reports fatigue, Reports fever(s) and Denies headache(s) ENT Denies dizziness, Denies headache(s) and Reports nasal congestion Card Denies chest pain, Denies syncope and Denies dyspnea Resp Reports cough and Denies dyspnea GI Denies vomiting Neuro Denies dizziness, Denies syncope and Denies headache(s) Endo Reports fatigue Physical Exam Vital Signs: Last Vital Signs Temp 98.8 F 01/12/24 10:27 Pulse 84 01/12/24 10:27 BP 122/80 01/12/24 10:27 Pulse Ox 98 01/12/24 10:27 Oxygen Delivery Method Room Air 01/12/24 10:27 BMI result Body Mass Index 29.5 General: Non-toxic, NAD. Speaking full sentences. Skin: Warm dry throughout Eye: EOMI HENT: Airway patent. Uvula midline. No pharyngeal erythema or edema. No EXECUTIVE COACH. Bilateral canals clear. TM non-erythematous, non-bulging. No TM perforation or hemotympanum noted. Respiratory: CTA bilaterally. No wheezes, rales or rhonchi Cardiac: RRR. No murmur MSK: Full ROM extremities. Neurology: A/O. No aphasia or facial droop. Gait without abnormality Psych: Good mood and affect Assessment & Plan Assessment & Plan (1) COVID: Code(s): U07.1 - COVID-19 Plan: Patient seen and evaluated. Denies needing confirmatory test No PMH consistent with cardiac or lung pathology; discussed paxlovid and decided against Discussed fluid hydration with water or pedialyte to replace electrolytes Increase fluids and rest Discussed quarantine and pt will follow guidelines Patient gave verbal understanding and had no additional questions or concerns at time of discharge All questions answered Coding Level of Care Code Est Pt Level 3 (13247) Diagnoses COVID U07.1
[2024-01-12 10:27] VITALS: BP 122/80; PULSE 84; TEMP 37.1; O2SAT 98; BMI 29.5
== END 2024-01-12 11:17 | disposition home or self-care (01) ==
PROVIDERS: PCP Nurse Practitioner Family; Visit Provider Physician Assistant
DX: U07.1 COVID-19 (principal)

== ENCOUNTER → 2024-01-12 09:50 | Outpatient (BNVA) | payer MEDICARE, SELFPAY | PROVIDERS: PCP Nurse Practitioner Family; Visit Provider Physician Assistant | DX: U07.1 COVID-19 (principal) | CPT/HCPCS: 99212 ==

== ENCOUNTER 2024-02-04 08:01 | Outpatient (AMB) | payer OTHER, SELFPAY ==
--- NOTE | 2024-02-04 08:07 | A.OFFPC_ITS ---
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 Service Required: No Is last menstrual period known: No (on the depo) Post menopausal: No Patient : No Allergies Sulfa (Sulfonamide Antibiotics) [SULFA (SULFONAMIDE ANTIBIOTICS)] Allergy (Intermediate, Verified 02/04/24 08:24) HIVES Medication List - Last Reconciled 02/04/24 by Ziggy Morel CNP aripiprazole (Abilify) 15 mg PO DAILY aspirin 81 mg PO DAILY hydroxyzine pamoate (Vistaril) 25 mg PO BID PRN medroxyprogesterone 10 mg PO DAILY propranolol 20 mg PO BID Tobacco use date assessed: 09/04/23 Dental Screening Dental Screen Date: 02/04/24 Did you have a dental visit in the last 12 months?: Yes Did you have a dental problem in the last 6 months where you did not have access to dental care?: No Was dental information given to patient?: Patient has dentist HPI HPI Comments History of Present Illness Details 43-year-old female presents for an exten ded physical exam She has past medical history significant for schizoaffective disorder bipolar type, generalized anxiety disorder, PTSD, alcohol use disorder in remission, and cannabis use disorder She is followed by a psychiatrist at [facility] every 2 weeks and therapist weekly She is on Abilify, hydroxyzine, propranolol, aspirin, and medroxyprogesterone. She admits to taking her medications as prescribed without adverse reactions She reports improved anxiety, depressive symptoms. She generally sleeps well She has been making healthy lifestyle changes. She has not drank alcohol since 07/31/2023 No SI, HI, AVH No acute symptoms at this time Nonsmoker. Does not drink alcohol. She consumes cannabis gummies twice weekly She has never had an eye exam Last Pap smear test was with [facility] last year: normal Last Tdap injection was 2 years ago She has not received the covid vaccine this season and requests the vaccine. She intends to get the covid booster [facility] Medical History Anxiety Depression Personality disorder in adult ADHD Autism Surgical History [place] teeth extracted Family History (Updated 02/04/24 @ 08:13 by Edna Otero MA) Father Enlarged prostate Hypertension Obesity No family history of mental disorder Mother Pulmonary embolism Diabetes Sleep apnea No family history of mental disorder FH: mental illness Paternal Grandmother Parkinson disease Maternal Grandfather Alcohol abuse Social History (Updated 02/04/24 @ 08:13 by Edna Otero MA) Housing: House Patient Tobacco Use Status: Never used Tobacco e-Cigarette/Vaping Use: Never Used Second Hand Smoke Exposure: No Substance Use Type: Marijuana service: No Current occupational status: employed Current occupation: [employer] Cognitive needs: No Hearing needs: No Vision needs: No Questionnaire PHQ-9 Over the last 2 weeks, how often have you been bothered by any of the following problems? 1. Little interest or pleasure in doing things: not at all 2. Feeling down, depressed, or hopeless: not at all 3. Trouble falling or staying asleep, or sleeping too much: not at all 4. Feeling tired or having little energy: not at all 5. Poor appetite or overeating: not at all 6. Feeling bad about yourself - or that you are a failure or have let yourself or your family down: not at all 7. Trouble concentrating on things, such as reading the newspaper or watching television: not at all 8. Moving or speaking so slowly that other people could have noticed. Or the opposite - being so fidgety or restless that you have been moving around a lot more than usual: not at all 9. Thoughts that you would be better off or of hurting yourself in some way: not at all Total score: 0 Depression Screening Interpretation: Negative Depression Screening Done: Yes 01674 - PHQ-9 Billing: Yes Source: Developed by Drs. Jose L Schwartz, Vanessa Schmitt, Andrew Walsh and colleagues, with an educational manoj from [employer]. Thrive Questionnaire Date Thrive assessed: 02/04/24 I am a: Patient What is your living situation today?: I have a steady place to live Within the past 12 months, did the food you bought not last and you didn't have the money to get more?: Never true Within the past 12 months, did you worry whether your food would run out before you got money to buy more?: Never true Do you have trouble paying for medicines?: No Do you have trouble getting transportation to medical appointments?: No Do you have trouble paying your heating and electricity bill?: No Do you have trouble taking care of your child, family member or friend?: No Do you have trouble with day-to-day activities such as bathing, preparing meals, shopping, managing finances, etc.?: No Are you currently unemployed and looking for a job?: No Are you interested in more education?: No Please select the resources that you would like help with: None Currently or been in a relationship where the following occur: No concerns reported THRIVE Score: 0 AUDIT C Alcohol Use Questionnaire (AUDIT-C) 1. How often do you have a drink containing alcohol?: Never 3. How often do you have six or more drinks on one occasion?: Never Total Score: 0 AFTAB-7 AMB Questionnaire AFTAB-7 Date AFTAB - 7 assessed: 02/04/24 Feeling nervous, anxious, or on edge: 0 = Not at all Not being able to stop or control worryin = Not at all Worrying too much about different things: 0 = Not at all Trouble relaxin = Not at all Being so restless that it is hard to sit still: 0 = Not at all Becoming easily annoyed or irritable: 0 = Not at all Feeling afraid as if something awful might happen: 0 = Not at all Total AFTAB-7 score (0-4 normal; 5-9 mild; 10-14 moderate; 15-21 severe): 0 Source: Developed by Drs. Jose L Schwartz, Vanessa Schmitt, Andrew Walsh and colleagues, with an educational manoj from [employer]. AFTAB-7 Assessment Billing AFTAB-7 Assessment Tool: AFTAB-7 Assessment 93955 Review of Systems Const Details: Denies chills, Denies fatigue, Denies fever(s), Denies headache(s) and Denies weakness HEENT Denies change in vision, Denies dizziness, Denies headache(s), Denies hearing loss, Denies nasal congestion, Denies sinus pain, Denies sinus pressure and Denies sore throat Card Denies chest pain, Denies lightheadedness, Denies dyspnea and Denies other (palpitations) Resp Denies cough, Denies dyspnea and Denies wheezing GI Denies abdominal pain, Denies melena, Denies hematochezia, Denies change in bowel habits, Denies dyspepsia and Denies nausea Denies hematuria and Denies dysuria Musc Denies abnormal gait, Denies myalgias, Denies arthralgias, Denies numbness and Denies tingling Skin/Breast Denies rash, Denies unusual bruising and Denies wounds Neuro Denies abnormal gait, Denies dizziness, Denies headache(s), Denies memory loss, Denies numbness, Denies Sensory deficit (Neuro), Denies tingling and Denies weakness Psych Denies anxiety, Denies depression and Denies memory loss Endo Denies cold intolerance, Denies fatigue, Denies heat intolerance, Denies polydipsia and Denies polyuria [place]/Lymph Denies easy bleeding and Denies easy bruising Aller/Immun Denies wheezing Physical exam (Primary Care) Vital Signs: Last Vital Signs Temp 98.0 F 02/04/24 08:14 Pulse 72 02/04/24 08:14 Resp 16 02/04/24 08:14 BP 108/62 02/04/24 08:14 Pulse Ox 97 02/04/24 08:14 Oxygen Delivery Method Room Air 02/04/24 08:14 BMI result Body Mass Index 29.9 Tobacco/Smoking Status: Tobacco use Status Tobacco use date assessed 09/04/23 02/04/24 08:10 Patient Tobacco Use Status Never used Tobacco 02/04/24 08:13 e-Cigarette/Vaping Use Never Used 02/04/24 08:13 PHQ-9: PHQ-9 Score PHQ-9: Total score 0 02/04/24 08:30 Depression Screening Interpretation: Negative Thrive Assessment: Date of Thrive Assessment Date Thrive assessed 02/04/24 02/04/24 08:14 Currently or been in a relationship where the following occur: No concerns reported Const Other: General: no acute distress, well developed, alert and awake Nutritional Appearance: well nourished Orientation/consciousness: patient oriented x3 HENMT Head: Yes normocephalic and Yes atraumatic Ears: hearing grossly normal bilaterally and TM's normal bilaterally General nose exam: Normal external nose present and Normal nares present Mouth: Normal oral and palatal mucosa present and moist mucous membranes Teeth and gingiva: dentition normal Throat: Yes oropharynx normal Eyes Pupils: Equal, round and reactive pupils present and Pupil accommodation reflex normal EOM: EOMs intact bilaterally Neck Neck: Yes normal visual inspection, Yes no lymphadenopathy and Yes trachea midline Thyroid: Thyroid normal Carotids: no bruits Lymphatic: no lymphadenopathy noted Chest Chest palpation & inspection: normal inspection of the chest Resp Effort & Inspection: normal respiratory effort Auscultation: clear to auscultation bilaterally Cardio Rate: regular rate Rhythm: regular rhythm Heart sounds: S1 normal heart sound present, S2 normal heart sound present, no gallops, no murmurs and no rubs Bruits: no abdominal aortic bruits and no carotid bruits GI Palpation (GI): No Abdominal aortic bruit present, Soft to palpation, nontender, No hepatosplenomegaly present and No Rebound tenderness present Auscultation: normal bowel sounds General: Yes no CVA tenderness Back/Spine/Pelvis Back: no CVA tenderness Cervical Spine: cervical ROM normal and No Cervical spine tenderness Thoracic/Lumbar Spine: thoraco-lumbar ROM normal, No pain with thoraco-lumbar ROM, No thoracic spinal tenderness and No lumbar spinal tenderness Skin General: warm and dry. Normal skin color. Normal skin turgor Lesions: no lesions Rashes: no rashes Trauma: no lacerations or abrasions Wounds: no wounds Nails: normal Neuro General: patient oriented x3, gait normal and CN's II-XI intact bilaterally Cranial nerves: Yes Equal, round and reactive pupils present Cognition (Neuro): normal cognition Gait exam (Neuro): Normal gait present Motor exam (neuro): 5/5 motor strength present throughout Sensory Exam: No Sensory deficit (Neuro) Deep tendon reflexes (DTR's): Right patellar reflex intensity grade: 2+ and Left patellar reflex intensity grade: 2+ Extrem General: Yes normal to inspection, No edema and No calf tenderness Psych Appearance: grossly normal Affect: normal affect Attitude: cooperative Thought process: Normal thought process present Office Procedures Flu Questionnaire Does the patient have a severe egg allergy?: No Does the patient have severe life threatening allergies?: No Does the patient have a fever or illness today?: No Has the patient ever had Guillain-Blaine Syndrome?: No Has the patient ever had any past reaction to a flu shot?: No Immunizations Fluarix Triv [id number] (PF) 45 mcg (15 mcg x 3)/0.5 mL IM syringe Performing Provider: Ziggy Morel CNP Performing Location: [facility] [place] [facility] Administered by: Gali Isbell RN on 02/04/24 08:51 Dose Route Admin Location Dispensed Lot Number Expiration Date [facility] Information Strategist 0.5 mL IM Left Deltoid 0.5 mL [id number] 10/03/24 01720-122-56 [place] VIS Given Date VIS Provided VIS Publication Date 02/04/24 Single Vaccine 20 Eligibility Eligibility Date Funding Source Not [facility] Eligible 02/04/24 Private Coding Level of Care Code Est Pt Prev Care 40-64y(34471) Diagnoses Normal physical exam Z00.00 Generalized anxiety disorder F41.1 PTSD (post-traumatic stress disorder) F43.10 Schizoaffective disorder, bipolar type F25.0 Alcohol use disorder, mild, in early remission F10.11 Eye exam, routine Z01.00 Flu vaccine need Z23 Additional Codes AFTAB-7 Assessment Billing - AFTAB-7 Assessment Tool: AFTAB-7 Assessment [id number] ([id number]) Assessment & Plan Assessment & Plan (1) Normal physical exam: Code(s): Z00.00 - Encounter for general adult medical examination without abnormal findings Category: Medical Plan: No significant functional limitation noted Continue current treatment regimen Healthy diet and routine exercise encouraged Advised to continue follow-up with her psychiatrist and therapist as planned Encouraged to schedule her next physical exam for a year from today. Return with symptoms or concerns. Verbalized understanding and agreed with the treatment plan (2) Generalized anxiety disorder: Code(s): F41.1 - Generalized anxiety disorder Category: Medical Plan: Reports controlled anxiety and depressive symptoms PHQ-9 and AFTAB-7 scores are normal Continue current treatment regimen Follow-up with psychiatrist and therapist as planned Verbalized understanding and agreed with the treatment plan (3) PTSD (post-traumatic stress disorder): Code(s): F43.10 - Post-traumatic stress disorder, unspecified Category: Medical Plan: Plan as above (4) Schizoaffective disorder, bipolar type: Code(s): F25.0 - Schizoaffective disorder, bipolar type Category: Medical Plan: Plan as above (5) Alcohol use disorder, mild, in early remission: Code(s): F10.11 - Alcohol abuse, in remission Category: Medical Plan: She has not drank alcohol since 07/31/2023 Encouraged to continue to abstain from alcohol intake (6) Eye exam, routine: Code(s): Z01.00 - Encounter for examination of eyes and vision without abnormal findings Category: Medical Plan: She has never had an eye exam Referred to Ophthalmology for routine eye exam (7) Flu vaccine need: Code(s): Z23 - Encounter for immunization Category: Medical Plan: She has not been vaccinated for the flu this season Flu vaccine administered today by our nurse Orders: Orders Influenza [id number] Immunization Today Z23 - Encounter for immunization Referrals Ophthalmology Referral Z01.00 - Encounter for examination of eyes and vision without abnormal findings
[2024-02-04 08:14] VITALS: BP 108/62; PULSE 72; RESP 16; TEMP 36.7; O2SAT 97; BMI 29.9
== END 2024-02-04 08:54 | disposition home or self-care (01) ==
LOC: HO.HMCFM 08:02
PROVIDERS: PCP Nurse Practitioner Family; Visit Provider Nurse Practitioner Family
DX: Z00.00 Encounter for general adult medical examination without abnormal findings (principal); F41.1 Generalized anxiety disorder; F43.10 Post-traumatic stress disorder, unspecified; F25.0 Schizoaffective disorder, bipolar type; F10.11 Alcohol abuse, in remission

== ENCOUNTER → 2024-02-04 08:01 | Outpatient (BNVA) | payer OTHER, SELFPAY | PROVIDERS: PCP Nurse Practitioner Family; Visit Provider Nurse Practitioner Family | DX: Z00.00 Encounter for general adult medical examination without abnormal findings (principal); F41.1 Generalized anxiety disorder; F43.10 Post-traumatic stress disorder, unspecified; F25.0 Schizoaffective disorder, bipolar type; F10.11 Alcohol abuse, in remission; Z01.00 Encounter for examination of eyes and vision without abnormal findings; Z23 Encounter for immunization | CPT/HCPCS: 90471; 90656; 96127 ==

== ENCOUNTER 2024-10-31 11:35 | Outpatient (AMB) | payer OTHER, SELFPAY ==
--- NOTE | 2024-10-31 11:37 | MHC.PC.OV ---
Vital Signs 10/31/24 11:44 10/31/24 12:04 Height 5 ft 6 in Weight 196 lb 4 oz BMI 31.7 BP 140/80 H 130/80 Blood Pressure Location Rt brachial Rt brachial Position Sitting Sitting Respiration 16 Pulse 62 Pulse Source Pulse Oximeter Temp 98.2 F Temp Source Oral Pulse Oximetry (%) 100 Oxygen Delivery Method Room Air Intake Visit Reasons: F/U on her Intake Note: patient here for follow up on she is 4 1/2 months Paver Operator Required: No Is last menstrual period known: No Post menopausal: No Patient : Yes (4 1/2 months) Allergies Sulfa (Sulfonamide Antibiotics) (SULFA (SULFONAMIDE ANTIBIOTICS)) Allergy (Intermediate, Verified 10/31/24 11:57) HIVES Medication List - Last Reconciled 10/31/24 by Ziggy Morel CNP aripiprazole (Abilify) 15 mg PO DAILY aspirin 81 mg PO DAILY clonidine HCl 0.1 mg PO BEDTIME Tobacco use date assessed: 10/31/24 Dental Screening Dental Screen Date: 10/31/24 Did you have a dental visit in the last 12 months?: Yes Did you have a dental problem in the last 6 months where you did not have access to dental care?: No Was dental information given to patient?: Patient has dentist HPI HPI Comments History of Present Illness Details 44-year-old female presents for follow-up. She notes that she 19 weeks and expecting a boy. has been going well. She is followed by [facility]. She is excited about her . She is currently taking abilify 15mg daily, clonidine 0.1mg at bedtime, and aspirin 81 mg doing. She is followed by [facility], [facility], once monthly. She notes that her mood is generally well controlled. She denies acute symptoms at this time. [facility] Medical History Anxiety Depression Personality disorder in adult ADHD Autism Surgical History [place] teeth extracted Family History (Updated 02/04/24 @ 08:13 by Edna Otero MA) Father Enlarged prostate Hypertension Obesity No family history of mental disorder Mother Pulmonary embolism Diabetes Sleep apnea No family history of mental disorder FH: mental illness Paternal Grandmother Parkinson disease Maternal Grandfather Alcohol abuse Social History (Updated 02/04/24 @ 08:13 by Edna Otero MA) Housing: House Patient Tobacco Use Status: Never used Tobacco e-Cigarette/Vaping Use: Never Used Second Hand Smoke Exposure: No Substance Use Type: Marijuana Patient : Yes (4 1/2 months) service: No Current occupational status: employed Current occupation: [employer] Current occupational exposures/hazards: No Cognitive needs: No Hearing needs: No Vision needs: No Questionnaire PHQ-9 Over the last 2 weeks, how often have you been bothered by any of the following problems? 1. Little interest or pleasure in doing things: not at all 2. Feeling down, depressed, or hopeless: not at all 3. Trouble falling or staying asleep, or sleeping too much: several days 4. Feeling tired or having little energy: not at all 5. Poor appetite or overeating: not at all 6. Feeling bad about yourself - or that you are a failure or have let yourself or your family down: not at all 7. Trouble concentrating on things, such as reading the newspaper or watching television: not at all 8. Moving or speaking so slowly that other people could have noticed. Or the opposite - being so fidgety or restless that you have been moving around a lot more than usual: not at all 9. Thoughts that you would be better off or of hurting yourself in some way: not at all Total score: 1 Depression Screening Interpretation: Negative Depression Screening Done: Yes 44086 - PHQ-9 Billing: Yes Source: Developed by Drs. Jose L Schwartz, Vanessa Schmitt, Andrew Walsh and colleagues, with an educational manoj from [employer]. Thrive Questionnaire Date Thrive assessed: 10/31/24 I am a: Patient What is your living situation today?: I have a steady place to live Within the past 12 months, did the food you bought not last and you didn't have the money to get more?: Never true Within the past 12 months, did you worry whether your food would run out before you got money to buy more?: Never true Do you have trouble paying for medicines?: No Do you have trouble getting transportation to medical appointments?: No Do you have trouble paying your heating and electricity bill?: No Do you have trouble taking care of your child, family member or friend?: No Do you have trouble with day-to-day activities such as bathing, preparing meals, shopping, managing finances, etc.?: No Are you currently unemployed and looking for a job?: No Are you interested in more education?: Yes Please select the resources that you would like help with: Job search/training and Education Currently or been in a relationship where the following occur: No concerns reported THRIVE Score: 0 AUDIT C Alcohol Use Questionnaire (AUDIT-C) 1. How often do you have a drink containing alcohol?: Never 3. How often do you have six or more drinks on one occasion?: Never Total Score: 0 Score Reviewed/Action Taken: Yes AFTAB-7 AMB Questionnaire AFTAB-7 Date AFTAB - 7 assessed: 10/31/24 Feeling nervous, anxious, or on edge: 1 = Several days Not being able to stop or control worryin = Several days Worrying too much about different things: 1 = Several days Trouble relaxin = Several days Being so restless that it is hard to sit still: 0 = Not at all Becoming easily annoyed or irritable: 0 = Not at all Feeling afraid as if something awful might happen: 1 = Several days Total AFTAB-7 score (0-4 normal; 5-9 mild; 10-14 moderate; 15-21 severe): 5 Source: Developed by Drs. Jose L Schwartz, Vanessa Schmitt, Andrew Walsh and colleagues, with an educational manoj from [employer]. AFTAB-7 Assessment Billing AFTAB-7 Assessment Tool: AFTAB-7 Assessment 22955 Review of Systems Const Details: Const Denies chills, Denies fatigue, Denies fever(s), Denies headache(s) and Denies weakness ENT Denies dizziness and Denies headache(s) Card Denies chest pain, Denies lightheadedness, Denies dyspnea and Denies other (Palpitations) Resp Denies cough, Denies dyspnea, Denies wheezing and Denies other ( shortness of breath) GI Denies abdominal pain, Denies melena, Denies hematochezia, Denies change in bowel habits, Denies dyspepsia and Denies nausea Denies hematuria and Denies dysuria Musc Denies abnormal gait, Denies myalgias, Denies arthralgias, Denies numbness and Denies tingling Skin/Breast Denies rash, Denies unusual bruising and Denies wounds Neuro Denies abnormal gait, Denies dizziness, Denies headache(s), Denies memory loss, Denies numbness, Denies Sensory deficit (Neuro), Denies tingling and Denies weakness Psych Denies anxiety, Denies depression, Denies memory loss Endo Denies cold intolerance, Denies fatigue, Denies heat intolerance, Denies polydipsia and Denies polyuria Aller/Immun Denies wheezing Physical exam (Primary Care) Vital Signs: Last Vital Signs Temp 98.2 F 10/31/24 11:44 Pulse 62 10/31/24 11:44 Resp 16 10/31/24 11:44 BP 140/80 H 10/31/24 11:44 Pulse Ox 100 10/31/24 11:44 Oxygen Delivery Method Room Air 10/31/24 11:44 BMI result Body Mass Index 31.7 Tobacco/Smoking Status: Tobacco use Status Tobacco use date assessed 10/31/24 10/31/24 11:47 Patient Tobacco Use Status Never used Tobacco 10/31/24 11:40 e-Cigarette/Vaping Use Never Used 10/31/24 11:40 PHQ-9: PHQ-9 Score PHQ-9: Total score 1 10/31/24 11:47 Depression Screening Interpretation: Negative Thrive Assessment: Date of Thrive Assessment Date Thrive assessed 10/31/24 10/31/24 11:47 Currently or been in a relationship where the following occur: No concerns reported Const Other: General: no acute distress and well developed Nutritional Appearance: well nourished Orientation/consciousness: patient oriented x3 HENMT Head: Yes normocephalic and Yes atraumatic Eyes General: appearance normal, both eyes and all related structures Pupils: Equal, round and reactive pupils present EOM: EOMs intact bilaterally Resp Effort & Inspection: normal respiratory effort Auscultation: clear to auscultation bilaterally Cardio Rate: regular rate Rhythm: regular rhythm Heart sounds: S1 normal heart sound present, S2 normal heart sound present, no gallops, no murmurs and no rubs GI Palpation (GI): No Abdominal aortic bruit present, Soft to palpation, nontender, No hepatosplenomegaly present and No Rebound tenderness present Auscultation: normal bowel sounds General: Yes no CVA tenderness Back/Spine/Pelvis Back: no CVA tenderness Cervical Spine: cervical ROM normal and No Cervical spine tenderness Thoracic/Lumbar Spine: thoraco-lumbar ROM normal, No pain with thoraco-lumbar ROM, No thoracic spinal tenderness and No lumbar spinal tenderness Extrem General: Yes normal to inspection, No edema and No calf tenderness Skin General: warm and dry. Normal skin color. Normal skin turgor Lesions: no lesions Rashes: no rashes Trauma: no lacerations or abrasions Wounds: no wounds Nails: normal Neuro General: patient oriented x3, gait normal and no focal neuro deficit Cranial nerves: Yes Equal, round and reactive pupils present Cognition (Neuro): normal cognition Gait exam (Neuro): Normal gait present Sensory Exam: No Sensory deficit (Neuro) Psych Appearance: grossly normal Affect: normal affect Attitude: cooperative Thought process: Normal thought process present Coding Level of Care Code Est Pt Level 3 (84841) Diagnoses Z34.90 Bipolar 2 disorder F31.81 Anxiety F41.9 Laboratory tests ordered as part of a complete physical exam (CPE) Z00.00 Additional Codes AFTAB-7 Assessment Billing - AFTAB-7 Assessment Tool: AFTAB-7 Assessment 47625 ([id number]) PHQ-9 - 49119 - PHQ-9 Billing: Yes ([id number]) Assessment & Plan Assessment & Plan (1) : Code(s): Z34.90 - Encounter for supervision of normal , unspecified, unspecified trimester Category: Medical Plan: She notes that she 19 weeks and expecting a boy. has been going well. She is followed by [facility]. She is excited about her . Continue current treatment regimen. 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 She had not had comprehensive lab work done in over a year. Advised to get lab work done as soon as she can. Will review results and make changes as needed. Otherwise, follow-up for an extended physical exam as planned in December. Return sooner with symptoms or concerns. Verbalized understanding and agreed with the plan. (2) Bipolar 2 disorder: Code(s): F31.81 - Bipolar II disorder Category: Medical Plan: She is currently taking abilify 15mg daily, clonidine 0.1mg at bedtime, and aspirin 81 mg doing. She is followed by [facility], [place], once monthly. She notes that her mood is generally well controlled. AFTAB-7 score revealed mild anxiety. PHQ-9 score is normal. Continue current treatment regimen. Routine exercise encouraged. Follow-up with psychiatrist as planned. Verbalized understanding and agreed with the plan. (3) Anxiety: Code(s): F41.9 - Anxiety disorder, unspecified Category: Medical Plan: Plan as above. (4) Laboratory tests ordered as part of a complete physical exam (CPE): Code(s): Z00.00 - Encounter for general adult medical examination without abnormal findings Category: Medical Plan: Fasting labs ordered as part of a complete physical exam. Advised to fast for at least 10 hours before getting labs drawn. May drink water Verbalized understanding and agreed with treatment plan. Orders: Orders Comprehensive [place]. Panel Fast Today Z00.00 - Encounter for general adult medical examination without abnormal findings Lipid Panel Today Z00.00 - Encounter for general adult medical examination without abnormal findings Microalbumin, Random (w Creat) Today Z00.00 - Encounter for general adult medical examination without abnormal findings TSH reflex Free T4 Today Z00.00 - Encounter for general adult medical examination without abnormal findings UA CC w/rflx Micro + Cult Today Z00.00 - Encounter for general adult medical examination without abnormal findings Complete Blood Count Auto Diff Today Z00.00 - Encounter for general adult medical examination without abnormal findings Vitamin D 25-OH Total Today Z00.00 - Encounter for general adult medical examination without abnormal findings
[2024-10-31 11:44] VITALS: BP 140/80; PULSE 62; RESP 16; TEMP 36.8; O2SAT 100; BMI 31.7
[2024-10-31 12:04] VITALS: BP 130/80
--- OUTSIDE RECORDS SUMMARY | 2024-10-31 12:51 | XMS_ITS | Clinical Summary ---
Author Organization 299 [facility] Address [address] [place] [address] Phone Care Team Providers Care Desk Clerk Name Role Phone Ziggy Morel DECK WORKER Primary Care Provider [phone] Encounters Date Type Department Care Team Description 09/15/2024 Lab Requisition [facility] Lab [address] [place] [address] Chyna Merdano MD Encounter for gynecological examination (general) (routine) without abnormal findings 09/14/2024 Lab Requisition [facility] Lab [address] [place] [address] Chyna Medrano MD Encounter for screening, unspecified; Encounter for screening for infections with a predominantly sexual mode of transmission from Last 3 Months Social History Tobacco Use Types Packs/Day Years Used Date Smoking Tobacco: Never Assessed Comments Unknown Sex and Gender Information Value Date Recorded Sex Assigned at Not on file Legal Sex Female 11:11 PM EST Gender Identity Not on file Sexual Orientation Not on file Plan of Treatment Health Maintenance Due Date Last Done Comments Breast Cancer Screening 1981 DTaP,Tdap,and Td Vaccines (1 - Tdap) 2000 Hepatitis B Vaccines (1 of 3 - 19+ 3-dose series) 2000 COVID-19 Vaccine (2023-2 5 season) 2023 Depression Screening 04/06/2024 Social Influencers of Health Screening 09/14/2024 Influenza Vaccine (#1) 2024 02/04/2024 Cervical Cancer Screening: P ap Smear 09/15/2027 09/14/2024 HIV Screening Completed 09/14/2024 Hepatitis C Screening Completed 09/14/2024 HIB Vaccines Aged Out No longer eligi ble based on patient's age to complete this topic HPV Vaccines Aged Out No longer eligi ble based on patient's age to complete this topic Hepatitis A Vaccines Aged Out No long er eligible based on patient's age to complete this topic IPV Vaccines Aged Out No longer eligi ble based on patient's age to complete this topic MMR Vaccines Aged Out No longer eligi ble based on patient's age to complete this topic Meningococcal ACWY Vaccine Aged Out N o longer eligible based on patient's age to complete this topic Meningococcal B Vaccine Aged Out No l onger eligible based on patient's age to complete this topic Pneumococcal Vaccine: Pediat rics (0 to 5 Years) and At-Risk Patients (6 to 49 Years) Aged Out No longer eligi ble based on patient's age to complete this topic RSV Immunization Patients Un adina 20 months Aged Out No longer eligible b ased on patient's age to complete this topic Varicella Vaccines Aged Out No longer eligible based on patient's age to complete this topic Procedures Procedure Name Priority Date/Time Associated Diagnosis Comments CBC WITH AUTO DIFFERENTIAL Routine 09/14/2024 10:53 AM EDT Encounter for screening of mother TREPONEMA PALLIDUM ANTIBODY WITH REFLEX TO RPR AND PARTICLE AGGLUTINATION Routine 09/14/2024 10:53 AM EDT Encounter for screening of mother RUBELLA ANTIBODY IGG Routine 09/14/2024 10:53 AM EDT Encounter for screening of mother HEPATITIS B SURFACE ANTIGEN WITH CONFIRMATION Routine 09/14/2024 10:53 AM EDT Encounter for screening of mother CBC AND DIFFERENTIAL Routine 09/14/2024 10:53 AM EDT Encounter for screening of mother TYPE AND SCREEN Routine 09/14/2024 10:53 AM EDT Encounter for screening of mother HEPATITIS C ANTIBODY Routine 09/14/2024 10:53 AM EDT Encounter for screening of mother HIV 1, 2 ANTIBODY, P24 ANTIGEN WITH REFLEX TO DIFFERENTIATION Routine 09/14/2024 10:53 AM EDT Encounter for screening of mother VARICELLA ZOSTER ANTIBODY IGG Routine 09/14/2024 10:53 AM EDT Encounter for screening of mother PAP SMEAR Routine 09/14/2024 12:00 AM EDT Encounter for gynecological examination (general) (routine) without abnormal findings URINALYSIS WITH REFLEX MICROSCOPIC Routine 09/14/2024 12:00 AM EDT Encounter for screening, unspecified Encounter for screening for infections with a predominantly sexual mode of transmission URINALYSIS WITH REFLEX MICROSCOPIC Routine 09/14/2024 12:00 AM EDT Encounter for screening, unspecified Encounter for screening for infections with a predominantly sexual mode of transmission DRUG ABUSE SCREEN 8A PANEL, URINE Routine 09/14/2024 12:00 AM EDT Encounter for screening, unspecified Encounter for screening for infections with a predominantly sexual mode of transmission CHLAMYDIA TRACHOMATIS AND NEISSERIA GONORRHOEAE PCR Routine 09/14/2024 12:00 AM EDT Encounter for screening, unspecified Encounter for screening for infections with a predominantly sexual mode of transmission CULTURE URINE Routine 09/14/2024 12:00 AM EDT Encounter for screening, unspecified Encounter for screening for infections with a predominantly sexual mode of transmission from Last 3 Months Results * Hepatitis C antibody (09/14/2024 10:53 AM EDT) Pathologist [facility] Hepatitis C Antibody Negative Negative LAB CHEMISTRY METHOD 09/14/2024 2:49 PM EDT [facility] Blood Venous blood specimen / Unknown Venipuncture / Unknown 09/14/2024 10:53 AM EDT 09/14/2024 12:20 PM EDT us Chyna Medrano MD LAB BLOOD ORDERABLES Fin al Result [facility] [address] [place] [address], [place] [phone] * HIV 1,2 antibody, p24 antigen with reflex to differentiation (09/14/2024 10:53 AM EDT) HIV Combo AB/AG Negative Negative LAB CHEMISTRY METHOD 09/14/2024 2:[address] [facility] Blood Venous blood specimen / Unknown Venipuncture / Unknown 09/14/2024 10:53 AM EDT 09/14/2024 12:20 PM EDT [facility] - 09/14/2024 2:49 PM EDT This assay is a 4th generation assay allowing for earlier detection of HIV infection by detecting the presence of the HIV-1 p24 antigen as well as the traditional antibodies to HIV type 1 (including group O) and type 2. Use of a 4th generation assay is the current CDC recommendation for HIV screening. us Chyna Medrano MD LAB BLOOD ORDERABLES Fin al Result [facility] [address] [place] [address], [place] [phone] * Hepatitis B surface antigen with reflex to confirmation (09/14/2024 10:53 AM EDT) Hepatitis B Surface Ag Negative Negative LAB CHEMISTRY METHOD 09/14/2024 2:[address] [facility] Blood Venous blood specimen / Unknown Venipuncture / Unknown 09/14/2024 10:53 AM EDT 09/14/2024 12:20 PM EDT [facility] - 09/14/2024 2:20 PM EDT Over the counter supplements containing high doses of biotin may interfere with this assay. If interference is suspected, patients shoud be retested after refraining from biotin supplements for 72 hours. us Chyna Medrano MD LAB BLOOD ORDERABLES Fin al Result Performing Organization Address City/[facility]/ZIP Co de Phone Number [facility] [address] [place] [address], [place] [phone] * Treponema pallidum antibody with reflex to RPR and particle agglutination (09/14/2024 10:53 AM EDT) T. Pallidum Antibodies Negative Negative LAB CHEMISTRY METHOD 09/14/2024 4:[address] [facility] Blood Venous blood specimen / Unknown Venipuncture / Unknown 09/14/2024 10:53 AM EDT 09/14/2024 12:20 PM EDT Chyna Medrano MD LAB BLOOD ORDERABLES Fin al Result Performing Organization Address [facility]/ZIP Co de Phone Number [facility] [address] [place] [address], [place] [phone] * CBC auto differential (09/14/2024 10:53 AM EDT) [facility] [address] WBC 9.0 4.8 - 10.8 K/mcL LAB HEMETOLOGY METHOD 09/14/2024 12:[address] [facility] RBC 4.20 3.80 - 4.80 M/mcL LAB HEMETOLOGY METHOD 09/14/2024 12:[address] [facility] Hemoglobin 12.7 11.5 - 16.0 g/dL LAB HEMETOLOGY METHOD 09/14/2024 12:[address] [facility] Hematocrit 37.2 35.0 - 47.0 % LAB HEMETOLOGY METHOD 09/14/2024 12:[address] [facility] MCV 88.4 79.0 - 98.0 FL LAB HEMETOLOGY METHOD 09/14/2024 12:[address] [facility] MCH 30.2 27.0 - 32.0 pcg LAB HEMETOLOGY METHOD 09/14/2024 12:[address] [facility] MCHC 34.1 32.0 - 37.0 g/dL LAB HEMETOLOGY METHOD 09/14/2024 12:[address] [facility] RDW 12.6 11.0 - 15.0 % LAB HEMETOLOGY METHOD 09/14/2024 12:[address] [facility] Platelets 210 130 - 400 K/mcL LAB HEMETOLOGY METHOD 09/14/2024 12:[address] [facility] MPV 9.9 7.0 - 11.0 FL LAB HEMETOLOGY METHOD 09/14/2024 12:[address] [facility] NRBC 0.0 <1.0 % LAB HEMETOLOGY METHOD 09/14/2024 12:[address] [facility] NRBC Absolute 0.00 <0.10 K/mcL LAB HEMETOLOGY METHOD 09/14/2024 12:[address] [facility] Neutrophils Relative 77.4 % LAB HEMETOLOGY METHOD 09/14/2024 12:50 PM [facility] Lymphocytes Relative 17.7 % LAB [facility]EMETOLOGY [facility] Monocytes Relative 3.6 % LAB HEMETOLOGY METHOD 09/14/2024 12:[address] [facility] Eosinophils Relative 0.8 % LAB HEMETOLOGY METHOD 09/14/2024 12:[address] [facility] Basophils Relative 0.3 % LAB HEMETOLOGY METHOD 09/14/2024 12:[address] [facility] Immature Granulocytes Relative 0.2 % LAB HEMETOLOGY METHOD 09/14/2024 12:[address] [facility] Neutrophils Absolute 6.96 1.50 - 7.00 K/mcL LAB HEMETOLOGY METHOD 09/14/2024 12:[address] [facility] Lymphocytes Absolute 1.59 1.00 - 5.00 K/mcL LAB HEMETOLOGY METHOD 09/14/2024 12:[address] [facility] Monocytes Absolute 0.32 0.20 - 1.00 K/[facility] LAB HEMETOLOGY METHOD 09/14/2024 12:[address] [facility] Eosinophils Absolute 0.07 0.00 - 0.50 K/[facility] LAB HEMETOLOGY METHOD 09/14/2024 12:[address] [facility] Basophils Absolute 0.03 0.00 - 0.20 K/[facility] LAB HEMETOLOGY METHOD 09/14/2024 12:[address] [facility] Immature Granulocytes Absolute 0.02 0.00 - 0.03 K/[facility] LAB HEMETOLOGY METHOD 09/14/2024 12:[address] [facility] Blood Venous blood specimen / Unknown Venipuncture / Unknown 09/14/2024 10:53 AM EDT 09/14/2024 12:18 PM EDT us Chyna Medrano MD LAB BLOOD ORDERABLES Fin al Result [facility] [address] [place] [address], * Rubella antibody IgG (09/14/2024 10:53 AM EDT) Rubella IgG Quant 28.2 >=10.0 I Unit/mL LAB CHEMISTRY METHOD 09/14/2024 2:[address] [facility] Rubella IgG Antibody Interp Positive Positive LAB CHEMISTRY METHOD 09/14/2024 2:[address] [facility] Blood Venous blood specimen / Unknown Venipuncture / Unknown 09/14/2024 10:53 AM EDT 09/14/2024 12:20 PM EDT Chyna Medrano MD LAB BLOOD ORDERABLES Fin al Result [facility] [address] [place] [address], [place] [phone] * Type and screen (09/14/2024 10:53 AM EDT) Pathologist [facility] ABO Group A 09/14/2024 1:[address] [facility] Rh Type Positive 09/14/2024 1:[address] [facility] Antibody Screen Negative 09/14/2024 1:[address] [facility] Blood Venous blood specimen / Unknown Venipuncture / Unknown 09/14/2024 10:53 AM EDT 09/14/2024 12:20 PM EDT Chyna Medrano MD LAB BLOOD BANK TEST ORDE RABLES Final Result Performing Organization Address [facility]/ZIP Co de Phone Number [facility] [address] [place] [address], [place] [phone] * (ABNORMAL) Varicella zoster antibody IgG (09/14/2024 10:53 AM EDT) Pathologist [facility] Varicella IgG Negative( A) Positive LAB CHEMISTRY METHOD 09/14/2024 2:[address] [facility] Varicella Zoster IgG 0.03(L) >=1.00 S/CO LAB CHEMISTRY METHOD 09/14/2024 2:[address] [facility] Blood Venous blood specimen / Unknown Venipuncture / Unknown 09/14/2024 10:53 AM EDT 09/14/2024 12:[address] [facility] - 09/14/2024 2:09 PM EDT Interpretation >= 1.00 S/CO is considered to be consistent with Immunity us Chyna Medrano MD LAB BLOOD ORDERABLES Fin al Result [facility] [address] [place] [address], [place] [phone] * Urinalysis with reflex microscopic (09/14/2024 12:00 AM EDT) Pathologist [facility] Specific [place] Urine 1.016 1.003 - 1.030 LAB URINALYSIS - AUTOMATED METHOD 09/14/2024 1:[address] [facility] pH, Urine 6.0 5.0 - 8.0 pH LAB URINALYSIS - AUTOMATED METHOD 09/14/2024 1:27 PM [facility] Leukocytes, Urine Negative Negative LAB URINALYSIS - AUTOMATED METHOD 09/14/2024 1:[address] [facility] Nitrite, Urine Negative Negative LAB URINALYSIS - AUTOMATED METHOD 09/14/2024 1:[address] [facility] Protein, Urine Negative <=Trace mg/dL LAB URINALYSIS - AUTOMATED METHOD 09/14/2024 1:27 PM [facility] Glucose, Urine Negative Negative mg/dL LAB URINALYSIS - AUTOMATED METHOD [facility]2024 [facility] Ketones, Urine Negative Negative mg/dL LAB URINALYSIS - AUTOMATED METHOD 09/14/2024 1:27 PM [facility] Urobilinogen, Urine 0.2 0.2 - 1.0 mg/dL LAB URINALYSIS - AUTOMATED METHOD 09/14/2024 1:27 PM [facility] Bilirubin, Urine Negative Negative LAB URINALYSIS - AUTOMATED METHOD 09/14/2024 [facility] Blood, Urine Negative Negative LAB URINALYSIS - AUTOMATED METHOD 09/14/2024 1:[address] [facility] Urine Urine specimen obtained by clean catch procedure / Unknown 09/14/2024 09/14/2024 1:11 PM EDT us Chyna Medrano MD LAB URINE ORDERABLES Fin al Result [facility] [address] [place] [address], * Drug abuse screen 8a panel, urine (09/14/2024 12:00 AM EDT) Amphetamine Screen, Ur Negative Negative LAB CHEMISTRY METHOD 09/14/2024 3:[address] [facility] Comment:Certain OTC medicati ons containing ephedrine, phenylephrine, pseudoephedrine and phenylpropanolamine can cause false positive results. Barbiturate Screen, Ur Negative Negative LAB CHEMISTRY METHOD 09/14/2024 3:[address] [facility] Benzodiazepine Screen, Ur Negative Negative LAB CHEMISTRY METHOD 09/14/2024 3:[address] [facility] Cocaine Screen, Ur Negative Negative LAB CHEMISTRY METHOD 09/14/2024 3:[address] [facility] Opiate Screen, Ur Negative Negative LAB CHEMISTRY METHOD 09/14/2024 3:[address] [facility] Cannabinoid (THC) Screen, Ur Negative Negative LAB CHEMISTRY METHOD 09/14/2024 3:[address] [facility] Comment:Specimens from patie nts taking pantoprazole sodium (Protonix) have been shown to produce false positive results. Oxycodone Screen, Ur Negative Negative LAB CHEMISTRY METHOD 09/14/2024 3:[address] [facility] Fentanyl, Ur Negative Negative LAB CHEMISTRY METHOD 09/14/2024 3:[address] [facility] Urine Urine specimen obtained by clean catch procedure / Unknown 09/14/2024 09/14/2024 1:[address] [facility] - 09/14/2024 3:17 PM EDT Assay cutoffs: Amphetamines 1000 ng/mL Barbiturates 200 ng/mL Benzodiazepines 200 ng/mL Cocaine 300 ng/mL Fentanyl 1 ng/mL Opiates 300 ng/mL Oxycodone 100 ng/mL THC 50 ng/mL Semi-quantitative assay for screening purposes only. Unconfirmed screening result should not be used for non-medical purposes. *ALTERNATE METHOD CONFIRMATION DONE UPON REQUEST ONLY* us Chyna Medrano MD LAB URINE ORDERABLES Fin al Result Performing Organization Address City/[facility]/ZIP Co de Phone Number [facility] [address] [place] [address], [place] [phone] * Chlamydia trachomatis and Neisseria gonorrhoeae molecular study (09/14/2024 12:00 AM EDT) Neisseria gonorrhoeae PCR Negative Negative LAB MOLECULAR DIAGNOSTICS METHOD 09/14/2024 3:[address] [facility] Chlamydia trachomatis PCR Negative Negative LAB MOLECULAR DIAGNOSTICS METHOD 09/14/2024 3:[address] [facility] Swab Cervix uteri structure / Unknown 09/14/2024 09/14/2024 1:11 PM EDT us Chyna Medrano MD LAB MICROBIOLOGY - GENER AL ORDERABLES Final Result [facility] [address] [place] [address], [place] [phone] * Culture urine (09/14/2024 12:00 AM EDT) Culture, Urine No growth 09/15/2024 10:[address] [facility] Urine Urine specimen obtained by clean catch procedure / Unknown 09/14/2024 09/14/2024 1:11 PM EDT Chyna Medrano MD LAB MICROBIOLOGY - GENER AL ORDERABLES Final Result Performing Organization Address City/[facility]/ZIP Co de Phone Number [facility] [address] [place] [id number], * Pap smear (09/14/2024 12:00 AM EDT) Interpretation Negative for intraepithelial lesion or malignancy 09/20/2024 1:[address] [facility] General Categorization Negative 09/20/2024 1:[address] [facility] Specimen Adequacy Satisfactory for evaluation, endocervical/sotomayor sformation zone component present 09/20/2024 1:[address] [facility] Pap Methodology Liquid Based Pap Test 09/20/2024 1:[address] [facility] Disclaimer The Pap test is a screening test which carries an inherent false negative rate. These test results should be correlated with the patient's clinical findings and history. This Pap test was processed using an automated screening system. Technical cytopathology services provided by [facility], at [address] [place] [address] (CLIA # [id number]/Yeny Cherry MD, [employer].) 09/20/2024 1:[address] [facility] Console Pap Interpretation Reported 09/20/2024 1:[address] [facility] Brushing/Spatula Cervix uteri structure / Unknown 09/14/2024 09/15/2024 7:26 AM EDT Chyna Medrano MD LAB CYTOLOGY ORDERABLES Final Result [facility] [address] [place] [address], from Last 3 Months Insurance [employer] Care Teams Desk Clerk Relationship Specialty Start Date End Date Ziggy Morel FNP [address] [place] [phone] PCP - General Family Medicine 09/23/24
--- OUTSIDE RECORDS SUMMARY | 2024-10-31 12:51 | XMS_ITS ---
Author Organization [facility] Source Produ ction (ClinicalSummary Clone) Address Unknown Care Team Providers Care Sales Promotion Officer Name Role Phone Unavailable Primary Care Physician Unavailab le Results * [UNITY] CARRIER SCREEN Performed by: [employer] Component Value Range Date Sickle Cell Disease/Beta-Thalassemia/Hemo globinopathies carrier screen NEGATIVE 10/04/2024 05:45 am UTC Alpha-Thalassemia carrier screen NEGATIVE 10/04/2024 05:45 am UTC Cystic Fibrosis carrier screen NEGATIVE 10/04/2024 05:45 am UTC Spinal Muscular Atrophy carrier screen NEGATIVE 2 SMN1 copies, SNP not present 10/04/2024 05:45 am UT For detailed report, see PDF See PDF 10/04/2024 05:45 am UTC 10/04/2024 05:4 5 am UT Social History Observation Value Start Date End Date
== END 2024-10-31 12:11 | disposition home or self-care (01) ==
LOC: HO.HMCFM 11:36
PROVIDERS: PCP Nurse Practitioner Family; Visit Provider Nurse Practitioner Family
DX: Z34.90 Encounter for supervision of normal pregnancy, unspecified, unspecified trimester (principal); F31.81 Bipolar II disorder; F41.9 Anxiety disorder, unspecified; Z00.00 Encounter for general adult medical examination without abnormal findings

== ENCOUNTER → 2024-10-31 11:35 | Outpatient (BNVA) | payer OTHER, SELFPAY | PROVIDERS: PCP Nurse Practitioner Family; Visit Provider Nurse Practitioner Family | DX: Z00.00 Encounter for general adult medical examination without abnormal findings (principal); O99.342 Other mental disorders complicating pregnancy, second trimester; F31.81 Bipolar II disorder; F41.9 Anxiety disorder, unspecified; Z3A.19 19 weeks gestation of pregnancy; Z79.899 Other long term (current) drug therapy | CPT/HCPCS: 96127 ==

== ENCOUNTER 2024-11-02 07:28 | Outpatient (REF) | payer OTHER, SELFPAY ==
--- OUTSIDE RECORDS SUMMARY | 2024-11-02 07:30 | XMS_ITS | Clinical Summary ---
Author Organization 299 [facility] Address [address] [place] [address] Phone Care Team Providers Care Endoscopy Technician Name Role Phone Ziggy Morel PARADICHLOROBENZENE MACHINE OPERATOR Primary Care Provider [phone] Encounters Date Type Department Care Team Description 09/15/2024 Lab Requisition [facility] [address] [place] [address] Chyna Medrano MD Encounter for gynecological examination (general) (routine) without abnormal findings 09/14/2024 Lab Requisition [facility] Lab [address] [place] [address] Chyna Medrano MD Encounter for [...] C antibody (09/14/2024 10:53 AM EDT) Pathologist [facility] Hepatitis C Antibody Negative Negative LAB CHEMISTRY METHOD 09/14/2024 2:49 PM EDT [facility] ([facility]) [facility] Blood Venous blood specimen / Unknown Venipuncture / Unknown 09/14/2024 10:53 AM EDT 09/14/2024 12:20 PM EDT us Chyna Medrano MD LAB BLOOD ORDERABLES Fin al Result [facility] [address] [place] [address], [place] [phone] * HIV 1,2 antibody, p24 antigen with reflex to differentiation (09/14/2024 10:53 AM EDT) HIV Combo AB/AG Negative Negative LAB CHEMISTRY METHOD 09/14/2024 2:49 PM EDT [facility] Blood Venous blood specimen / Unknown Venipuncture / Unknown 09/14/2024 10:53 AM EDT 09/14/2024 12:[address] [facility] - 09/14/2024 2:49 PM EDT [...] MD LAB BLOOD ORDERABLES Fin al Result [facility] [address] [place] [address], [place] [phone] * Hepatitis B surface antigen with reflex to confirmation (09/14/2024 10:53 AM EDT) Hepatitis B Surface Ag Negative Negative LAB CHEMISTRY METHOD 09/14/2024 2:20 PM EDT [facility] Blood Venous blood specimen / Unknown Venipuncture / Unknown 09/14/2024 10:53 AM EDT 09/14/2024 12:[address] [facility] - 09/14/2024 2:20 PM EDT Over the counter supplements containing high doses of biotin may interfere with this assay. If interference is suspected, patients shoud be retested after refraining from biotin supplements for 72 hours. us Chyna Medrano MD LAB BLOOD ORDERABLES Fin al Result Performing Organization Address City/[facility]/ZIP Co de Phone Number [facility] [address] [place] [address], [place] [phone] * Treponema pallidum antibody with reflex to RPR and particle agglutination (09/14/2024 10:53 AM EDT) T. Pallidum Antibodies Negative Negative LAB CHEMISTRY METHOD 09/14/2024 4:20 PM EDT [facility] Blood Venous blood specimen / Unknown Venipuncture / Unknown 09/14/2024 10:53 AM EDT 09/14/2024 12:20 PM EDT Chyna Medrano MD LAB BLOOD ORDERABLES Fin al Result Performing Organization Address [facility]/ZIP Co de Phone Number [facility] [address] [place] [address], [place] [phone] * CBC auto differential (09/14/2024 10:53 AM EDT) [facility] WBC 9.0 4.8 - 10.8 K/mcL LAB HEMETOLOGY METHOD 09/14/2024 12:50 PM EDT [facility] RBC 4.20 3.80 - 4.80 M/mcL LAB HEMETOLOGY METHOD 09/14/2024 12:50 PM EDT [facility] Hemoglobin 12.7 11.5 - 16.0 g/dL LAB HEMETOLOGY METHOD 09/14/2024 12:50 PM EDT [facility] Hematocrit 37.2 35.0 - 47.0 % LAB HEMETOLOGY METHOD 09/14/2024 12:50 PM EDT [facility] MCV 88.4 79.0 - 98.0 FL LAB HEMETOLOGY METHOD 09/14/2024 12:50 PM EDT [facility] MCH 30.2 27.0 - 32.0 pcg LAB HEMETOLOGY METHOD 09/14/2024 12:50 PM EDT [facility] MCHC 34.1 32.0 - 37.0 g/dL LAB HEMETOLOGY METHOD 09/14/2024 12:50 PM EDT [facility] RDW 12.6 11.0 - 15.0 % LAB HEMETOLOGY METHOD 09/14/2024 12:50 PM EDT [facility] Platelets 210 130 - 400 K/mcL LAB HEMETOLOGY METHOD 09/14/2024 12:50 PM EDT [facility] MPV 9.9 7.0 - 11.0 FL LAB HEMETOLOGY METHOD 09/14/2024 12:50 PM EDT [facility] NRBC 0.0 <1.0 % LAB HEMETOLOGY METHOD 09/14/2024 12:50 PM EDT [facility] NRBC Absolute 0.00 <0.10 K/mcL LAB HEMETOLOGY METHOD 09/14/2024 12:50 PM EDT [facility] Neutrophils Relative 77.4 % LAB HEMETOLOGY METHOD 09/14/2024 12:[address] [facility] Lymphocytes Relative 17.7 % LAB [facility]OLOGY [facility] Monocytes Relative 3.6 % LAB HEMETOLOGY METHOD 09/14/2024 12:50 PM EDT [facility] Eosinophils Relative 0.8 % LAB HEMETOLOGY METHOD 09/14/2024 12:50 PM EDT [facility] Basophils Relative 0.3 % LAB HEMETOLOGY METHOD 09/14/2024 12:50 PM EDT [facility] Immature Granulocytes Relative 0.2 % LAB HEMETOLOGY METHOD 09/14/2024 12:50 PM EDT [facility] Neutrophils Absolute 6.96 1.50 - 7.00 K/mcL LAB HEMETOLOGY METHOD 09/14/2024 12:50 PM EDT [facility] Lymphocytes Absolute 1.59 1.00 - 5.00 K/mcL LAB HEMETOLOGY METHOD 09/14/2024 12:50 PM EDT [facility] Monocytes Absolute 0.32 0.20 - 1.00 K/[facility] LAB HEMETOLOGY METHOD 09/14/2024 12:50 PM EDT [facility] Eosinophils Absolute 0.07 0.00 - 0.50 K/[facility] LAB HEMETOLOGY METHOD 09/14/2024 12:50 PM EDT [facility] Basophils Absolute 0.03 0.00 - 0.20 K/[facility] LAB HEMETOLOGY METHOD 09/14/2024 12:50 PM EDT [facility] Immature Granulocytes Absolute 0.02 0.00 - 0.03 K/[facility] LAB HEMETOLOGY METHOD 09/14/2024 12:50 PM EDT [facility] Blood Venous blood specimen / Unknown Venipuncture / Unknown 09/14/2024 10:53 AM EDT 09/14/2024 12:18 PM EDT us Chyna Medrano MD LAB BLOOD ORDERABLES Fin al Result [facility] [address] [place] [address], * Rubella antibody IgG (09/14/2024 10:53 AM EDT) Rubella IgG Quant 28.2 >=10.0 I Unit/mL LAB CHEMISTRY METHOD 09/14/2024 2:20 PM EDT [facility] Rubella IgG Antibody Interp Positive Positive LAB CHEMISTRY METHOD 09/14/2024 2:20 PM EDT [facility] Blood Venous blood specimen / Unknown Venipuncture / Unknown 09/14/2024 10:53 AM EDT 09/14/2024 12:20 PM EDT Chyna Medrano MD LAB BLOOD ORDERABLES Fin al Result [facility] [address] [place] [address], [place] [phone] * Type and screen (09/14/2024 10:53 AM EDT) Pathologist [facility] ABO Group A 09/14/2024 1:20 PM EDT [facility] Rh Type Positive 09/14/2024 1:20 PM EDT [facility] Antibody Screen Negative 09/14/2024 1:20 PM EDT [facility] Blood Venous blood specimen / Unknown Venipuncture / Unknown 09/14/2024 10:53 AM EDT 09/14/2024 12:20 PM EDT Chyna Medrano MD LAB BLOOD BANK TEST ORDE RABLES Final Result Performing Organization Address [facility]/ZIP Co de Phone Number [facility] [address] [place] [address], [place] [phone] * (ABNORMAL) Varicella zoster antibody IgG (09/14/2024 10:53 AM EDT) Pathologist [facility] Varicella IgG Negative( A) Positive LAB CHEMISTRY METHOD 09/14/2024 2:09 PM EDT [facility] Varicella Zoster IgG 0.03(L) >=1.00 S/CO LAB CHEMISTRY METHOD 09/14/2024 2:09 PM EDT [facility] Blood Venous blood specimen / Unknown Venipuncture / Unknown 09/14/2024 10:53 AM EDT 09/14/2024 12:19 PM EDT Narrative [facility] - 09/14/2024 2:09 PM EDT Interpretation >= 1.00 S/CO is considered to be consistent with Immunity us Chyna Medrano MD LAB BLOOD ORDERABLES Fin al Result [facility] [address] [place] [address], [place] [phone] * Urinalysis with reflex microscopic (09/14/2024 12:00 AM EDT) Pathologist [facility] Specific [place] Urine 1.016 1.003 - 1.030 LAB URINALYSIS - AUTOMATED METHOD 09/14/2024 1:27 PM EDT [facility] pH, Urine 6.0 5.0 - 8.0 pH LAB URINALYSIS - AUTOMATED METHOD 09/14/2024 1:[address] [facility] Leukocytes, Urine Negative Negative LAB URINALYSIS - AUTOMATED METHOD 09/14/2024 1:27 PM T [facility] Nitrite, Urine Negative Negative LAB URINALYSIS - AUTOMATED METHOD 09/14/2024 1:27 PM EDT [facility] Protein, Urine Negative <=Trace mg/dL LAB URINALYSIS - AUTOMATED METHOD 09/14/2024 1:[address] [facility] Glucose, Urine Negative Negative mg/dL LAB URINALYSIS - AUTOMATED METHOD 09/14[facility]2024 [facility] Ketones, Urine Negative Negative mg/dL LAB URINALYSIS - AUTOMATED METHOD 09/14/2024 1:[address] [facility] Urobilinogen, Urine 0.2 0.2 - 1.0 mg/dL LAB URINALYSIS - AUTOMATED METHOD 09/14/2024 1:[address] [facility] Bilirubin, Urine Negative Negative LAB URINALYSIS - AUTOMATED METHOD 09/14/2024 [facility] Blood, Urine Negative Negative LAB URINALYSIS - AUTOMATED METHOD 09/14/2024 1:27 PM EDT [facility] Urine Urine specimen obtained by clean catch procedure / Unknown 09/14/2024 09/14/2024 1:11 PM EDT us Chyna Medrano MD LAB URINE ORDERABLES Fin al Result [facility] [address] [place] [address], * Drug abuse screen 8a panel, urine (09/14/2024 12:00 AM EDT) Amphetamine Screen, Ur Negative Negative LAB CHEMISTRY METHOD 09/14/2024 3:17 PM EDT [facility] Comment:Certain OTC medicati ons containing ephedrine, phenylephrine, pseudoephedrine and phenylpropanolamine can cause false positive results. Barbiturate Screen, Ur Negative Negative LAB CHEMISTRY METHOD 09/14/2024 3:17 PM EDT [facility] Benzodiazepine Screen, Ur Negative Negative LAB CHEMISTRY METHOD 09/14/2024 3:17 PM EDT [facility] Cocaine Screen, Ur Negative Negative LAB CHEMISTRY METHOD 09/14/2024 3:17 PM EDT [facility] Opiate Screen, Ur Negative Negative LAB CHEMISTRY METHOD 09/14/2024 3:17 PM EDT [facility] Cannabinoid (THC) Screen, Ur Negative Negative LAB CHEMISTRY METHOD 09/14/2024 3:17 PM EDT [facility] Comment:Specimens from patie nts taking pantoprazole sodium (Protonix) have been shown to produce false positive results. Oxycodone Screen, Ur Negative Negative LAB CHEMISTRY METHOD 09/14/2024 3:17 PM EDT [facility] Fentanyl, Ur Negative Negative LAB CHEMISTRY METHOD 09/14/2024 3:17 PM EDT [facility] Urine Urine specimen obtained by clean catch procedure / Unknown 09/14/2024 09/14/2024 1:11 PM EDT Narrative [facility] - 09/14/2024 3:17 PM EDT Assay [...] ORDERABLES Fin al Result Performing Organization Address City/[facility]/ZIP Co de Phone Number [facility] [address] [place] [address], [place] [phone] * Chlamydia trachomatis and Neisseria gonorrhoeae molecular study (09/14/2024 12:00 AM EDT) Neisseria gonorrhoeae PCR Negative Negative LAB MOLECULAR DIAGNOSTICS METHOD 09/14/2024 3:43 PM EDT [facility] Chlamydia trachomatis PCR Negative Negative LAB MOLECULAR DIAGNOSTICS METHOD 09/14/2024 3:43 PM EDT [facility] Swab Cervix uteri structure / Unknown 09/14/2024 09/14/2024 1:11 PM EDT us Chyna Medrano MD LAB MICROBIOLOGY - GENER AL ORDERABLES Final Result [facility] [address] [place] [address], [place] [phone] * Culture urine (09/14/2024 12:00 AM EDT) Culture, Urine No growth 09/15/2024 10:27 AM EDT [facility] Urine Urine specimen obtained by clean catch procedure / Unknown 09/14/2024 09/14/2024 1:11 PM EDT Chyna Medrano MD LAB MICROBIOLOGY - GENER AL ORDERABLES Final Result Performing Organization Address City/[facility]/ZIP Co de Phone Number [facility] [address] [place] [id number], * Pap smear (09/14/2024 12:00 AM EDT) Interpretation Negative for intraepithelial lesion or malignancy 09/20/2024 1:23 PM EDT [facility] General Categorization Negative 09/20/2024 1:23 PM EDT [facility] Specimen Adequacy Satisfactory for evaluation, endocervical/sotomayor sformation zone component present 09/20/2024 1:23 PM EDT [facility] Pap Methodology Liquid Based Pap Test 09/20/2024 1:23 PM EDT [facility] Disclaimer The Pap test is a screening test which carries an inherent false negative rate. These test results should be correlated with the patient's clinical findings and history. This Pap test was processed using an automated screening system. Technical cytopathology services provided by [facility], at [address] [place] [id number] (CLIA # [id number]/Yeny Cherry MD, Technical Documentation Specialist.) 09/20/2024 1:23 PM EDT [facility] Console Pap Interpretation Reported 09/20/2024 1:23 PM EDT [facility] Brushing/Spatula Cervix uteri structure / Unknown 09/14/2024 09/15/2024 7:26 AM EDT Chyna Medrano MD LAB CYTOLOGY ORDERABLES Final Result [facility] [address] [place] [address], from Last 3 Months Insurance [employer] Care Teams Endoscopy Technician Relationship Specialty Start Date End Date Ziggy Morel FNP [address] [place] [address] PCP - General Family Medicine 09/23/24
[2024-11-02 11:14] LABS: Appearance Urine Clear; Glucose Urine UA Negative (Negative); PH 7.5 (5.0-9.0); Specific Gravity - Urine <= 1.005 (1.005-1.025)
[2024-11-02 11:19] LABS: MANUAL DIFF FLAG NO
[2024-11-02 11:36] LABS: Hematocrit 35.5 % (37.0-47.0); Hemoglobin 12.3 g/dl (12.0-16.0); Imm Gran Abs Auto 0.04 X10*3/uL (0.00-0.03); Imm Gran Pct Auto 0.5 % (0.0-0.4); Lymphocytes Absolute Auto 1.3 X10*3/uL (1.2-4.9); Mean Corpuscular HGB Conc 34.6 g/dl (31.0-35.0); Mean Corpuscular Hemoglobin 30.0 pg (27.0-33.0); Mean Corpuscular Volume 86.6 fL (80.0-98.0); NRBC Abs Auto 0.000 X10*3/uL (0.0-0.012); NRBC Pct Auto 0.0 /100WBC (0.0-0.2); Platelet Count 188 X10*3/uL (160-400); Red Blood Count 4.10 X10*6/uL (4.20-5.50); White Blood Count 8.6 X10*3/uL (4.8-10.8)
[2024-11-02 12:06] LABS: Alanine Aminotransferase 27 U/L (0-31); Albumin Level 3.6 g/dL (3.5-5.0); Alkaline Phosphatase 57 U/L (39-117); Anion Gap 11 (12-20); Aspartate Amino Transferase 24 U/L (5-31); Blood Urea Nitrogen 9 mg/dL (9-16); Calcium 8.6 mg/dL (8.4-10.2); Carbon Dioxide 24 mmol/L (22-29); Chloride 105 mmol/L (96-108); Cholesterol 238 mg/dL (<200); Estimated Glomerular Filt Rate > 60; HDL Cholesterol 76 mg/dL (>40); Potassium 3.8 mmol/L (3.3-5.1); Sodium 136 mmol/L (135-145); Total Protein 6.8 g/dL (6.5-8.0); Triglycerides 102 mg/dL (<150)
== END 2024-11-02 07:29 | disposition home or self-care (01) ==
LOC: HO.WFDLDS 07:28
PROVIDERS: Visit Provider Nurse Practitioner Family
DX: Z00.00 Encounter for general adult medical examination without abnormal findings (principal); Z13.220 Encounter for screening for lipoid disorders; K62.5 Hemorrhage of anus and rectum
CPT/HCPCS: 36415; 80053; 80061; 81003; 82043; 82306; 82570; 84443; 85025

== ENCOUNTER 2025-02-06 07:50 | Outpatient (AMB) | payer OTHER, SELFPAY ==
--- OUTSIDE RECORDS SUMMARY | 2025-02-06 07:53 | XMS_ITS | Encounter Summary ---
Author Organization [facility] Address [id number] [place] [phone] Care Team Providers Care Coffin Maker Name Role Phone Ziggy Morel MANAGER HOSPITAL Primary Care Provider [phone] Encounter Details Date Type Department Care Team (Latest Contact Info) Description 09/15/2024 Lab Requisition [facility] [address] [facility] [place] [phone] Chyna Medrano MD [address] [address] Encounter for gynecological examination (general) (routine) without abnormal findings Social History Tobacco Use Types Packs/Day Years Used Date Smoking Tobacco: Never Assessed Comments Unknown Sex and Gender Information Value Date Recorded Sex Assigned at Female 01/03/2025 11:18 AM EDT Legal Sex Female 11:11 PM EST Gender Identity Female 01/03/2025 11:18 AM EDT Sexual Orientation Straight 01/03/2025 11 :18 AM EDT documented as of this encounter Plan of Treatment Not on file documented as of this encounter Procedures Procedure Name Priority Date/Time Associated Diagnosis Comments PAP SMEAR Routine 09/14/2024 12:00 AM EDT Encounter for gynecological examination (general) (routine) without abnormal findings documented in this encounter Results * Pap smear (09/14/2024 12:00 AM EDT) Interpretation Negative for intraepithelial lesion or malignancy 09/20/2024 1:23 PM EDT [facility] HOSP[facility] LAB General Categorization Negative 09/20/2024 1:23 PM EDT [facility] Specimen Adequacy Satisfactory for evaluation, endocervical/sotomayor sformation zone component present 09/20/2024 1:23 PM EDT [facility] Pap Methodology Liquid Based Pap Test 09/20/2024 1:23 PM EDT [facility] Disclaimer The Pap test is a screening test which carries an inherent false negative rate. These test results should be correlated with the patient's clinical findings and history. This Pap test was processed using an automated screening system. Technical cytopathology services provided by [facility], at [address] [place] [id number] (CLIA # [id number]/Yeny Cherry MD, Cuff Setter Overlock.) 09/20/2024 1:23 PM EDT [facility] Console Pap Interpretation Reported 09/20/2024 1:23 PM T [facility] Brushing/Spatula Cervix uteri structure / Unknown 09/14/2024 09/15/2024 7:26 AM EDT us Chyna Medrano MD LAB CYTOLOGY ORDERABLES Final Result Performing Organization Address City/State/[facility] Co de Phone Number [facility] [address] [place] [address], documented in this encounter Visit Diagnoses Diagnosis Encounter for gynecological examination (general) (routine) without abnormal findings documented in this encounter Care Teams Coffin Maker Relationship Specialty Start Date End Date Ziggy Morel FNP [address] [place] [phone] PCP - General Family Medicine 09/23/24 documented as of this encounter
--- OUTSIDE RECORDS SUMMARY | 2025-02-06 07:53 | XMS_ITS ---
Author Organization [facility] Source Produ ction (ClinicalSummary Clone) Address Unknown Care Team Providers Care Ict Trainer Name Role Phone Unavailable Primary Care Physician Unavailab le Results * [UNITY] ANEUPLOIDY NIPT Performed by: [employer] Component Value Range Date Fraction 5.6% 10/01/2024 06 :38 am [place] Sex Chromosome Aneuploidy NOT DETECTED 06:38 am UT Monosomy X LOW RISK <1 in 10,000 2024 06:38 am [place] Trisomy 13 LOW RISK <1 in 10,000 2024 06:38 am [place] Trisomy 18 LOW RISK <1 in 10,000 2024 06:38 am [place] Trisomy 21 LOW RISK <1 in 10,000 2024 06:38 am [place] Sex MALE 10/01/2024 06:3 8 am [place] Gestation SHAY 10/02/19 06:38 am [facility] For detailed report, see PDF See PDF 10/01/2024 06:38 am UTC 10/01/2024 06:3 8 am [facility] Social History Observation Value Start Date End Date
--- OUTSIDE RECORDS SUMMARY | 2025-02-06 07:53 | XMS_ITS | Clinical Summary ---
Author Organization [address] Address [address] [place] [phone] Phone Care Team Providers Care Cullet Trucker Name Role Phone Ziggy Morel DONNA Primary Care Provider [phone] Social History Tobacco Use Types Packs/Day Years Used Date Smoking Tobacco: Never Assessed Comments Unknown Sex and Gender Information Value Date Recorded Sex Assigned at Female 01/03/2025 11:18 AM EDT Legal Sex Female 11:11 PM EST Gender Identity Female 01/03/2025 11:18 AM EDT Sexual Orientation Straight 01/03/2025 11 :18 AM EDT Plan of Treatment Health Maintenance Due Date Last Done Comments Breast Cancer Screening 1981 DTaP,Tdap,and Td Vaccines (1 - Tdap) 2000 Hepatitis B Vaccines (1 of 3 - 19+ 3-dose series) 2000 HPV Vaccines (1 - 3-dose SCD M series) 2008 Depression Screening 04/06/2024 Medicare Annual Wellness Visit 09/14/2024 Social Influencers of Health Screening 09/14/2024 COVID-19 Vaccine (1 - 2023-2 5 season) 2024 Influenza Vaccine (#1) 2024 02/04/2024 Cervical Cancer Screening: P ap Smear 09/15/2027 09/14/2024 RSV Immunization Adult Patie nts (1 - 1-dose 75+ series) 2056 HIV Screening Completed 09/14/2024 Hepatitis C Screening [...] Procedure Name Priority Date/Time Associated Diagnosis Comments URINALYSIS WITH REFLEX MICROSCOPIC Routine 12/14/2024 11:57 AM EDT CBC WITH AUTO DIFFERENTIAL Routine 12/14/2024 11:57 AM EDT URINALYSIS WITH REFLEX MICROSCOPIC Routine 12/14/2024 11:57 AM EDT URIC ACID Routine 12/14/2024 11:57 AM EDT ALANINE AMINOTRANSFERASE Routine 12/14/2024 11:57 AM EDT ASPARTATE AMINOTRANSFERASE Routine 12/14/2024 11:57 AM EDT PROTEIN AND CREATININE WITH RATIO, URINE Routine 12/14/2024 11:57 AM EDT CBC AND DIFFERENTIAL Routine 12/14/2024 11:57 AM EDT CREATININE, SERUM Routine 12/14/2024 11: 57 AM EDT BUN Routine 12/14/2024 11:57 AM EDT CULTURE URINE Routine 12/14/2024 11:57 AM EDT GTT GESTATIONAL 3 HOUR Routine 11:16 AM EDT Gestational hyperglycemia GTT GESTATIONAL 2 HOUR Routine 10:17 AM EDT Gestational hyperglycemia GTT GESTATIONAL 1 HOUR Routine 9:17 AM EDT Gestational hyperglycemia GTT GESTATIONAL FASTING Routine 12/15/19 8:14 AM EDT Gestational hyperglycemia GLUCOSE TOLERANCE TEST, 3H GESTATION Routine 12/14/2024 8:14 AM EDT Gestational hyperglycemia GTT GESTATIONAL 1 HOUR Routine 8:40 AM EDT Screening for diabetes mellitus HEMOGLOBIN Routine 12/07/2024 8:40 AM EDT Screening for diabetes mellitus GLUCOSE TOLERANCE TEST, 1H GESTATION Routine 12/07/2024 8:40 AM EDT Screening for diabetes mellitus HEPATITIS C ANTIBODY Routine 09/14/2024 10:53 AM EDT Encounter for screening of mother HIV 1, 2 ANTIBODY, P24 ANTIGEN WITH REFLEX TO DIFFERENTIATION Routine 09/14/2024 10:53 AM EDT Encounter for screening of mother PAP SMEAR Routine 09/14/2024 12:00 AM EDT Encounter for gynecological examination (general) (routine) without abnormal findings from Last 3 Months or Most Recently Relevant to Health Maintenance Results * (ABNORMAL) Urinalysis with reflex microscopic (12/14/2024 11:57 AM EDT) Specific [place] Urine 1.035(H) 1.003 - 1.030 LAB URINALYSIS - AUTOMATED METHOD 12/14/2024 2:08 PM EDT [facility] pH, Urine 6.5 5.0 - 8.0 pH LAB URINALYSIS - AUTOMATED METHOD 12/14/2024 2:08 PM EDT [facility] Leukocytes, Urine Negative Negative LAB URINALYSIS - AUTOMATED METHOD 12/14/2024 2:08 PM [facility] Nitrite, Urine Negative Negative LAB URINALYSIS - AUTOMATED METHOD 12/14/2024 2:08 PM [facility] Protein, Urine 30(A) <=Trace mg/dL LAB URINALYSIS - AUTOMATED METHOD 12/14/2024 2:08 PM [facility] Glucose, Urine >=1000(A) Negative mg/dL LAB URINALYSIS - AUTOMATED METHOD 12/14/2024 2:08 PM [facility] Ketones, Urine Negative Negative mg/dL LAB URINALYSIS - AUTOMATED METHOD 12/14/2024 2:08 PM [facility] Urobilinogen , Urine 1.0 0.2 - 1.0 mg/dL LAB URINALYSIS - AUTOMATED METHOD 12/14/2024 2:08 PM [facility] Bilirubin, Urine Negative Negative LAB URINALYSIS - AUTOMATED METHOD 12/14/2024 2:08 PM [facility] Blood, Urine Negative Negative LAB URINALYSIS - AUTOMATED METHOD 12/14/2024 2:08 PM [facility] RBC, Urine 1.7 0 - 4 /HPF LAB URINALYSIS - AUTOMATED METHOD 12/14/2024 2:08 PM [facility] WBC, Urine 0.9 0 - 4 /HPF LAB URINALYSIS - AUTOMATED METHOD 12/14/2024 2:08 PM [facility] Squamous Epithelial, Urine 16 0 - 60 /LPF LAB URINALYSIS - AUTOMATED METHOD 12/14/2024 2:08 PM [facility] Bacteria, Urine Negative Negative /HPF LAB URINALYSIS - AUTOMATED METHOD 12/14/2024 2:08 PM [facility] Hyaline Casts, Urine 0.4 0 - 3 /LPF LAB URINALYSIS - AUTOMATED METHOD 12/14/2024 2:08 PM EDT [facility] Urine Urine specimen obtained by clean catch procedure / Unknown Non-blood Collection / Unknown 12/14/2024 11:57 AM EDT 12/14/2024 1:59 PM EDT us Chyna Medrano MD LAB URINE ORDERABLES Fin al Result [facility] [address] [place] [address], [place] [phone] * (ABNORMAL) CBC auto differential (12/14/2024 11:57 AM EDT) WBC 9.0 4.8 - 10.8 K/mcL LAB HEMETOLOGY METHOD 12/14/2024 12:43 PM EDT [facility] RBC 4.20 3.80 - 4.80 M/mcL LAB HEMETOLOGY METHOD 12/14/2024 12:43 PM EDT [facility] Hemoglobin 12.5 11.5 - 16.0 g/dL LAB HEMETOLOGY METHOD 12/14/2024 12:43 PM EDT [facility] Hematocrit 37.2 35.0 - 47.0 % LAB HEMETOLOGY METHOD 12/14/2024 12:43 PM EDT [facility] MCV 88.2 79.0 - 98.0 FL LAB HEMETOLOGY METHOD 12/14/2024 12:43 PM EDT [facility] MCH 29.6 27.0 - 32.0 pcg LAB HEMETOLOGY METHOD 12/14/2024 12:43 PM EDT [facility] MCHC 33.6 32.0 - 37.0 g/dL LAB HEMETOLOGY METHOD 12/14/2024 12:43 PM EDT [facility] RDW 13.4 11.0 - 15.0 % LAB HEMETOLOGY METHOD 12/14/2024 12:43 PM [facility] Platelets 172 130 - 400 K/mcL LAB HEMETOLOGY METHOD 12/14/2024 12:43 PM [facility] MPV 10.1 7.0 - 11.0 FL LAB HEMETOLOGY METHOD 12/14/2024 12:43 PM [facility] NRBC 0.0 <1.0 % LAB HEMETOLOGY METHOD 12/14/2024 12:43 PM [facility] NRBC Absolute 0.00 <0.10 K/mcL LAB HEMETOLOGY METHOD 12/14/2024 12:43 PM [facility] Neutrophils Relative 81.9 % LAB HEMETOLOGY METHOD 12/14/2024 12:43 PM [facility] Lymphocytes Relative 12.5 % LAB HEMETOLOGY METHOD 12/14/2024 12:43 PM [facility] Monocytes Relative 4.5 % LAB HEMETOLOGY METHOD 12/14/2024 12:43 PM [facility] Eosinophils Relative 0.3 % LAB HEMETOLOGY METHOD 12/14/2024 12:43 PM [facility] Basophils Relative 0.4 % LAB HEMETOLOGY METHOD 12/14/2024 12:43 PM [facility] Immature Granulocytes Relative 0.4 % LAB HEMETOLOGY METHOD 12/14/2024 12:43 PM [facility] Neutrophils Absolute 7.35(H) 1.50 - 7.00 K/mcL LAB HEMETOLOGY METHOD 12/14/2024 12:43 PM [facility] Lymphocytes Absolute 1.12 1.00 - 5.00 K/mcL LAB HEMETOLOGY METHOD 12/14/2024 12:43 PM [facility] Monocytes Absolute 0.40 0.20 - 1.00 K/mcL LAB HEMETOLOGY METHOD 12/14/2024 12:43 PM EDT [facility] Eosinophils Absolute 0.03 0.00 - 0.50 K/[facility] LAB HEMETOLOGY METHOD 12/14/2024 12:43 PM EDT [facility] Basophils Absolute 0.04 0.00 - 0.20 K/[facility] LAB HEMETOLOGY METHOD 12/14/2024 12:43 PM EDT [facility] Immature Granulocytes Absolute 0.04(H) 0.00 - 0.03 K/[facility] LAB HEMETOLOGY METHOD 12/14/2024 12:43 PM EDT [facility] Blood Venous blood specimen / Unknown Venipuncture / Unknown 12/14/2024 11:57 AM EDT 12/14/2024 12:36 PM EDT Chyna Medrano MD LAB BLOOD ORDERABLES Fin al Result [facility] [address] [place] [address], [place] [phone] * (ABNORMAL) Protein and creatinine with ratio, urine (12/14/2024 11:57 AM EDT) Protein, Urine 37 mg/dL LAB CHEMISTRY METHOD 12/14/2024 6:19 PM EDT [facility] Prot/Creat, Ur 0.32(H) <=0.20 mg/mg creat LAB CHEMISTRY METHOD 12/14/2024 6:19 PM EDT [facility] Creatinine, Urine 116.0 mg/dL LAB CHEMISTRY METHOD 12/14/2024 6:19 PM EDT [facility] Urine Urine specimen obtained by clean catch procedure / Unknown Non-blood Collection / Unknown 12/14/2024 11:57 AM EDT 12/14/2024 1:59 PM EDT us Chyna Medrano MD LAB URINE ORDERABLES Fin al Result Performing Organization Address [facility] Co de Phone Number [facility] [address] [place] [address], [place] [phone] * Creatinine (12/14/2024 11:57 AM EDT) Creatinine 0.52 0.50 - 1.10 mg/dL LAB CHEMISTRY METHOD 12/14/2024 1:41 PM EDT [facility] eGFR 118 >=60 mL/min/1. 73m2 LAB CHEMISTRY METHOD 12/14/2024 1:41 PM EDT [facility] Comment:Calculation based on the Chronic Kidney Disease Epidemiology Collaboration (CKD-EPI) equation refit without adjustment for race. Blood Venous blood specimen / Unknown Venipuncture / Unknown 12/14/2024 11:57 AM EDT 12/14/2024 12:34 PM EDT Chyna Medrano MD LAB BLOOD ORDERABLES Fin al Result Performing Organization Address [facility] Co de Phone Number [facility] [address] [place] [address], [place] [phone] * Culture urine (12/14/2024 11:57 AM EDT) Culture, Urine No growth 12/15/2024 7:30 AM EDT [facility] Urine Urine specimen from urethra / Unknown Non-blood Collection / Unknown 12/14/2024 11:57 AM EDT 12/14/2024 1:59 PM EDT us Chyna Medrano MD LAB MICROBIOLOGY - GENER AL ORDERABLES Final Result Performing Organization Address [facility]/ZIP Co de Phone Number [facility] [address] [place] [address], [place] [phone] * (ABNORMAL) Uric acid (12/14/2024 11:57 AM EDT) Uric Acid 2.1(L) 3.1 - 7.8 mg/dL LAB CHEMISTRY METHOD 12/14/2024 1:41 PM EDT [facility] Blood Venous blood specimen / Unknown Venipuncture / Unknown 12/14/2024 11:57 AM EDT 12/14/2024 12:34 PM EDT us Chyna Medrano MD LAB BLOOD ORDERABLES Fin al Result [facility] [address] [place] [address], [place] [phone] * BUN (12/14/2024 11:57 AM EDT) Pathologist [facility] BUN 9 5 - 25 mg/dL LAB CHEMISTRY METHOD 12/14/2024 1:41 PM EDT [facility] Blood Venous blood specimen / Unknown Venipuncture / Unknown 12/14/2024 11:57 AM EDT 12/14/2024 12:34 PM EDT us Chyna Medrano MD LAB BLOOD ORDERABLES Fin al Result [facility] [address] [place] [address], [place] [phone] * Alanine aminotransferase (12/14/2024 11:57 AM EDT) ALT (SGPT) 22 10 - 60 unit/L LAB CHEMISTRY METHOD 12/14/2024 1:41 PM EDT [facility] Blood Venous blood specimen / Unknown Venipuncture / Unknown 12/14/2024 11:57 AM EDT 12/14/2024 12:34 PM EDT us Chyna Medrano MD LAB BLOOD ORDERABLES Fin al Result Performing Organization Address [facility]/ZIP Co de Phone Number [facility] [address] [place] [address], * Aspartate aminotransferase (12/14/2024 11:57 AM EDT) AST (SGOT) 13 10 - 42 unit/L LAB CHEMISTRY METHOD 12/14/2024 1:41 PM EDT [facility] Blood Venous blood specimen / Unknown Venipuncture / Unknown 12/14/2024 11:57 AM EDT 12/14/2024 12:34 PM EDT Chyna Medrano MD LAB BLOOD ORDERABLES Fin al Result Performing Organization Address [facility]/[place] Co de Phone Number [facility] [address] [place] [address], * (ABNORMAL) GTT gestational 3 hour (12/14/2024 11:16 AM EDT) Glucose, 3 HR Gestational 198(H) <140 mg/dL LAB CHEMISTRY METHOD 12/14/2024 1:03 PM EDT [facility] Blood Venous blood specimen / Unknown Venipuncture / Unknown 12/14/2024 11:16 AM EDT 12/14/2024 12:33 PM EDT Narrative [facility] - 12/14/2024 1:03 PM EDT Gestational 3 hour GTT Reference Range: Normal: Fasting: < 95 mg/dL 60 minute: < 180 mg/dL 120 minute: < 155 mg/dL 180 minute: < 140 mg/dL Luis Sharpe MD LAB BLOOD ORDERABLES Final Res ult Performing Organization Address [facility]/ZIP Co de Phone Number [facility] [address] [place] [address], * (ABNORMAL) GTT gestational 2 hour (12/14/2024 10:17 AM EDT) Glucose, 2 HR Gestational 190(H) <155 mg/dL LAB CHEMISTRY METHOD 12/14/2024 1:03 PM EDT [facility] Blood Venous blood specimen / Unknown Venipuncture / Unknown 12/14/2024 10:17 AM EDT 12/14/2024 12:33 PM EDT us Luis Sharpe MD LAB BLOOD ORDERABLES Final Res ult Performing Organization Address City/[facility]/ZIP Co de Phone Number [facility] [address] [place] [address], [place] [phone] * GTT gestational 1 hour (12/14/2024 9:17 AM EDT) Only the most recent of2 resultswithin the time period is included. Glucose, 1 HR Gestational 140 <180 mg/dL LAB CHEMISTRY METHOD 12/14/2024 1:03 PM EDT [facility] Blood Venous blood specimen / Unknown Venipuncture / Unknown 12/14/2024 9:17 AM EDT 12/14/2024 12:33 PM EDT us Luis Sharpe MD LAB BLOOD ORDERABLES Final Res ult Performing Organization Address City/[facility]/ZIP Co de Phone Number [facility] [address] [place] [address], [place] [phone] * GTT gestational fasting (12/14/2024 8:14 AM EDT) Glucose, GTT - Fasting 78 <95 mg/dL LAB CHEMISTRY METHOD 12/14/2024 1:04 PM EDT [facility] Blood Venous blood specimen / Unknown Venipuncture / Unknown 12/14/2024 8:14 AM EDT 12/14/2024 12:33 PM EDT us Luis Sharpe MD LAB BLOOD ORDERABLES Final Res ult Performing Organization Address [facility]/ZIP Co de Phone Number [facility] [address] [place] [address], [place] [phone] * Hemoglobin (12/07/2024 8:40 AM EDT) Pathologist [facility] Hemoglobin 12.5 11.5 - 16.0 g/dL LAB HEMETOLOGY METHOD 12/07/2024 10:44 AM EDT [facility] Blood Venous blood specimen / Unknown Venipuncture / Unknown 12/07/2024 8:40 AM EDT 12/07/2024 10:21 AM EDT Luis Sharpe MD LAB BLOOD ORDERABLES Final Res ult Performing Organization Address [facility]/ZIP Co de Phone Number [facility] [address] [place] [address], [place] [phone] * Hepatitis C antibody (09/14/2024 10:53 AM EDT) [facility] [address] Hepatitis C Antibody Negative Negative LAB CHEMISTRY METHOD 09/14/2024 2:49 PM EDT [facility] Blood Venous blood specimen / Unknown Venipuncture / Unknown 09/14/2024 10:53 AM EDT 09/14/2024 12:20 PM EDT Chyna Medrano MD LAB BLOOD ORDERABLES Fin al Result Performing Organization Address City/[facility]/ZIP Co de Phone Number [facility] [address] [place] [address], [place] [phone] * HIV 1,2 antibody, p24 antigen with reflex to differentiation (09/14/2024 10:53 AM EDT) [facility] [address] HIV Combo AB/AG Negative Negative LAB CHEMISTRY METHOD 09/14/2024 2:49 PM EDT [facility] Blood Venous blood specimen / Unknown Venipuncture / Unknown 09/14/2024 10:53 AM EDT 09/14/2024 12:20 PM EDT Narrative [facility] - 09/14/2024 2:49 PM EDT This [...] MD LAB BLOOD ORDERABLES Fin al Result [facility] [address] [place] [address], * Pap smear (09/14/2024 12:00 AM EDT) Interpretation Negative for intraepithelial lesion or malignancy 09/20/2024 1:23 PM EDT [facility] General Categorization Negative 09/20/2024 1:23 PM [facility] Specimen Adequacy Satisfactory for evaluation, endocervical/sotomayor sformation zone component present 09/20/2024 1:23 PM EDT [facility] Pap Methodology Liquid Based Pap Test 09/20/2024 1:23 PM EDT [facility] Disclaimer The Pap test is a screening test which carries an inherent false negative rate. These test results should be correlated with the patient's clinical findings and history. This Pap test was processed using an automated screening system. Technical cytopathology services provided by [facility], at [address] [place] [id number] (CLIA # [id number]/Yeny Cherry MD, Sweatband Perforator.) 09/20/2024 1:23 PM [facility] Console Pap Interpretation Reported 09/20/2024 1:23 PM EDT [facility] Brushing/Spatula Cervix uteri structure / Unknown 09/14/2024 09/15/2024 7:26 AM EDT us Chyna Medrano MD LAB CYTOLOGY ORDERABLES Final Result [facility] [address] [place] [address], from Last 3 Months or Most Recently Relevant to Health Maintenance Insurance [facility] Care Teams Cullet Trucker Relationship Specialty Start Date End Date Ziggy Morel FNP [address] [facility] [place] [phone] PCP - General Family Medicine 09/23/24
--- OUTSIDE RECORDS SUMMARY | 2025-02-06 07:53 | XMS_ITS | Encounter Summary ---
Author Organization [facility] Address [address] [place] [id number] Care Team Providers Care Mining Speculator Name Role Phone Ziggy Morel SUPERVISOR [employer] Primary Care Provider [phone] Encounter Details Date Type Department Care Team (Latest Contact Info) Description 09/14/[address] [facility] [address] [facility] [employer] [address] Chyna Medrano MD [address] [facility] [address] [place] [address] Encounter for screening, unspecified; Encounter for screening for infections with a predominantly sexual mode of transmission Social History Tobacco Use Types Packs/Day Years [...] Diagnosis Comments URINALYSIS WITH REFLEX MICROSCOPIC Routine 09/14/2024 12:00 [...] with a predominantly sexual mode of transmission documented in this encounter Results * Urinalysis with reflex microscopic (09/14/2024 12:00 AM EDT) Specific [facility] Urine 1.016 1.003 - 1.030 LAB URINALYSIS - AUTOMATED METHOD 09/14/2024 1:27 PM [facility] pH, Urine 6.0 5.0 - 8.0 pH LAB URINALYSIS - AUTOMATED METHOD 09/14/2024 1:27 PM [facility] Leukocytes, Urine Negative Negative LAB URINALYSIS - AUTOMATED METHOD 09/14/2024 1:27 PM [facility] Nitrite, Urine Negative Negative LAB URINALYSIS - AUTOMATED METHOD 09/14/2024 1:27 PM [facility] Protein, Urine Negative <=Trace mg/dL LAB URINALYSIS - AUTOMATED METHOD 09/14/2024 1:27 PM [facility] Glucose, Urine Negative Negative mg/dL LAB URINALYSIS - AUTOMATED METHOD 09/14/2024 1:27 PM [facility] Ketones, Urine Negative Negative mg/dL LAB URINALYSIS - AUTOMATED METHOD 09/14/2024 1:27 PM [facility] Urobilinogen, Urine 0.2 0.2 - 1.0 mg/dL LAB URINALYSIS - AUTOMATED METHOD 09/14/2024 1:27 PM [facility] Bilirubin, Urine Negative Negative LAB URINALYSIS - AUTOMATED METHOD 09/14/2024 1:27 PM EDT [facility] Blood, Urine Negative Negative LAB URINALYSIS - AUTOMATED METHOD 09/14/2024 1:27 PM EDT [facility] Urine Urine specimen obtained by clean catch procedure / Unknown 09/14/2024 09/14/2024 1:11 PM EDT us Chyna Medrano MD LAB URINE ORDERABLES Fin al Result [facility] [address] [place] [address], [place] [phone] * Chlamydia trachomatis and Neisseria gonorrhoeae molecular study (09/14/2024 12:00 AM EDT) Neisseria gonorrhoeae PCR Negative Negative LAB MOLECULAR DIAGNOSTICS METHOD 09/14/2024 3:43 PM EDT [facility] Chlamydia trachomatis PCR Negative Negative LAB MOLECULAR DIAGNOSTICS METHOD 09/14/2024 3:43 PM EDT [facility] Swab Cervix uteri structure / Unknown 09/14/2024 09/14/2024 1:11 PM EDT us Chyna Medrano MD LAB MICROBIOLOGY - GENER AL ORDERABLES Final Result [facility] [address] [place] [address], [place] [phone] * Culture urine (09/14/2024 12:00 AM EDT) Culture, Urine No growth 09/15/2024 10:27 AM EDT [facility] Urine Urine specimen obtained by clean catch procedure / Unknown 09/14/2024 09/14/2024 1:11 PM EDT us Chyna Medrano MD LAB MICROBIOLOGY - GENER AL ORDERABLES Final Result [facility] [address] [place] [address], * Drug abuse screen 8a panel, urine (09/14/2024 12:00 AM EDT) Amphetamine Screen, Ur Negative Negative LAB CHEMISTRY METHOD 09/14/2024 3:17 PM EDT [facility] Comment:Certain OTC medicati ons containing ephedrine, phenylephrine, pseudoephedrine and phenylpropanolamine can cause false positive results. Barbiturate Screen, Ur Negative Negative LAB CHEMISTRY METHOD 09/14/2024 3:17 PM EDT [facility] Benzodiazepine Screen, Ur Negative Negative LAB CHEMISTRY METHOD 09/14/2024 3:17 PM EDT [facility] Cocaine Screen, Ur Negative Negative LAB CHEMISTRY METHOD 09/14/2024 3:17 PM EDT [facility] Opiate Screen, Ur Negative Negative LAB CHEMISTRY METHOD 09/14/2024 3:17 PM EDT [facility] Cannabinoid (THC) Screen, Ur Negative Negative LAB CHEMISTRY METHOD 09/14/2024 3:17 PM EDT [facility] Comment:Specimens from patie nts taking pantoprazole sodium (Protonix) have been shown to produce false positive results. Oxycodone Screen, Ur Negative Negative LAB CHEMISTRY METHOD 09/14/2024 3:17 PM EDT [facility] Fentanyl, Ur Negative Negative LAB CHEMISTRY METHOD 09/14/2024 3:17 PM EDT [facility] Urine Urine specimen obtained by clean catch procedure / Unknown 09/14/2024 09/14/2024 1:11 PM EDT Narrative [facility] - 09/14/2024 3:17 PM [...] LAB URINE ORDERABLES Fin al Result [facility] [address] [place] [address], documented in this encounter Visit Diagnoses Diagnosis Encounter for screening, unspecified Encounter for screening for infections with a predominantly sexual mode of transmission documented in this encounter Care Teams Mining Speculator Relationship Specialty Start Date End Date Ziggy Morel FNP [address] [place] [phone] PCP - General Family Medicine 09/23/24 documented as of this encounter
--- NOTE | 2025-02-06 07:54 | A.OFFPC_ITS ---
Vital Signs 02/06/25 08:01 02/06/25 08:19 Height 5 ft 6 in Weight 224 lb 4 oz BMI 36.2 BP 135/72 Blood Pressure Location Lt brachial Position Sitting Respiration 16 Pulse 154 H 100 Pulse Source Pulse Oximeter Auscultation Temp 97.6 F Temp Source Oral Pulse Oximetry (%) 100 Oxygen Delivery Method Room Air Intake Visit Reasons: CPE Intake Note: patient here for CPE Cooker Casing Required: No Is last menstrual period known: No Post menopausal: No Patient : Yes (8 months ) Allergies Sulfa (Sulfonamide Antibiotics) (SULFA (SULFONAMIDE ANTIBIOTICS)) Allergy (Intermediate, Verified 02/06/25 08:15) HIVES Medication List - Last Reconciled 02/06/25 by Ziggy Morel CNP aripiprazole (Abilify) 15 mg PO DAILY clonidine HCl 0.1 mg PO BEDTIME docosahexaenoic acid ( DHA) mg PO enoxaparin 40 mg subcut DAILY Tobacco use date assessed: 02/06/25 Dental Screening Dental Screen Date: 02/06/25 Did you have a dental visit in the last 12 months?: Yes Did you have a dental problem in the last 6 months where you did not have access to dental care?: No Was dental information given to patient?: Patient has dentist HPI HPI Comments History of Present Illness Details 44-year-old female presents for an exten ded physical exam and review of recent lab results. She admits to taking her medications as prescribed without adverse reactions. Her build and release manager put her on Lovonox 40 mg SC daily due to right right for clotting r/t h/o DVT RLL in 2017. She notes that she is nervous due to medical visits and due to frequent build and release manager follow ups during this . She is almost 33 weeks with a boy and healthy thus far. Her due date is 03/29/2025. She is excited but a little anxious about the labor process. She denies depression. Denies SI/HI/AVH. Acute issue(s) - None Past Medical History - Schizoaffective disorder bipolar type, generalized anxiety disorder, PTSD, alcohol use disorder in remission, and cannabis use disorder Social History - Nonsmoker. Does not vape.Denies drinki ng alcohol since 07/2023. Denies recreational drug use - Has been making healthy dietary choice s. Exercises routinely. Generally sleep well Health maintenance - She has never hand an eye exam. Referr ed to Ophthalmology - Last dental visit was in 10/2024 - [facility] - Last flu vaccine was last wek [facility] - Last pap smear test was in 09/2024 with [facility] build and release manager: Normal - She has never had a mammogram. She wan ts to get a mammogram Specialists - [facility], virtually, once monthly - Be Encouraged Counseling for psychothe rapy once weekly - [facility] build and release manager [facility] Medical History Anxiety Depression Personality disorder in adult ADHD Autism Surgical History [place] teeth extracted Family History (Updated 02/04/24 @ 08:13 by Edna Otero MA) Father Enlarged prostate Hypertension Obesity No family history of mental disorder Mother Pulmonary embolism Diabetes Sleep apnea No family history of mental disorder FH: mental illness Paternal Grandmother Parkinson disease Maternal Grandfather Alcohol abuse Social History (Updated 02/04/24 @ 08:13 by Edna Otero MA) Housing: House Patient Tobacco Use Status: Never used Tobacco e-Cigarette/Vaping Use: Never Used Second Hand Smoke Exposure: No Substance Use Type: Marijuana service: No Current occupational status: employed Current occupation: [employer] Current occupational exposures/hazards: No Cognitive needs: No Hearing needs: No Vision needs: No Questionnaire PHQ-9 Over the last 2 weeks, how often have you been bothered by any of the following problems? 1. Little interest or pleasure in doing things: not at all 2. Feeling down, depressed, or hopeless: not at all 3. Trouble falling or staying asleep, or sleeping too much: nearly every day 4. Feeling tired or having little energy: nearly every day 5. Poor appetite or overeating: not at all 6. Feeling bad about yourself - or that you are a failure or have let yourself or your family down: not at all 7. Trouble concentrating on things, such as reading the newspaper or watching television: not at all 8. Moving or speaking so slowly that other people could have noticed. Or the opposite - being so fidgety or restless that you have been moving around a lot more than usual: not at all 9. Thoughts that you would be better off or of hurting yourself in some way: not at all Total score: 6 Depression Screening Interpretation: Positive Depression Screening Follow-up: Existing condition and In treatment Depression Screening Done: Yes 07359 - PHQ-9 Billing: Yes Source: Developed by Drs. Jose L Schwartz, Vanessa Schmitt, Andrew Walsh and colleagues, with an educational manoj from [employer]. Thrive Questionnaire Date Thrive assessed: 02/06/25 I am a: Patient What is your living situation today?: I have a steady place to live Within the past 12 months, did the food you bought not last and you didn't have the money to get more?: Never true Within the past 12 months, did you worry whether your food would run out before you got money to buy more?: Never true Do you have trouble paying for medicines?: No Do you have trouble getting transportation to medical appointments?: No Do you have trouble paying your heating and electricity bill?: No Do you have trouble taking care of your child, family member or friend?: No Do you have trouble with day-to-day activities such as bathing, preparing meals, shopping, managing finances, etc.?: No Are you currently unemployed and looking for a job?: No Are you interested in more education?: Yes Currently or been in a relationship where the following occur: No concerns reported THRIVE Score: 0 AUDIT C Alcohol Use Questionnaire (AUDIT-C) 1. How often do you have a drink containing alcohol?: Never 3. How often do you have six or more drinks on one occasion?: Never Total Score: 0 Score Reviewed/Action Taken: Yes AFTAB-7 AMB Questionnaire AFTAB-7 Date AFTAB - 7 assessed: 02/06/25 Feeling nervous, anxious, or on edge: 3 = Nearly every day Not being able to stop or control worryin = Nearly every day Worrying too much about different things: 3 = Nearly every day Trouble relaxin = More than half the days Being so restless that it is hard to sit still: 1 = Several days Becoming easily annoyed or irritable: 0 = Not at all Feeling afraid as if something awful might happen: 3 = Nearly every day Total AFTAB-7 score (0-4 normal; 5-9 mild; 10-14 moderate; 15-21 severe): 15 Source: Developed by Drs. Jose L Schwartz, Vanessa Schmitt, Andrew Walsh and colleagues, with an educational manoj from [employer]. AFTAB-7 Assessment Billing AFTAB-7 Assessment Tool: AFTAB-7 Assessment 28723 Review of Systems Const Details: Denies chills, Denies fatigue, Denies fever(s), Denies headache(s) and Denies weakness HEENT Denies change in vision, Denies dizziness, Denies headache(s), Denies hearing loss, Denies nasal congestion, Denies sinus pain, Denies sinus pressure and Denies sore throat Card Denies chest pain, Denies lightheadedness, Denies dyspnea and Denies other (palpitations) Resp Denies cough, Denies dyspnea and Denies wheezing GI Denies abdominal pain, Denies melena, Denies hematochezia, Denies change in bowel habits, Denies dyspepsia and Denies nausea Denies hematuria and Denies dysuria Musc Denies abnormal gait, Denies myalgias, Denies arthralgias, Denies numbness and Denies tingling Skin/Breast Denies rash, Denies unusual bruising and Denies wounds Neuro Denies abnormal gait, Denies dizziness, Denies headache(s), Denies memory loss, Denies numbness, Denies Sensory deficit (Neuro), Denies tingling and Denies weakness Psych Reports anxiety, Denies depression and Denies memory loss Endo Denies cold intolerance, Denies fatigue, Denies heat intolerance, Denies polydipsia and Denies polyuria [place]/Lymph Denies easy bleeding and Denies easy bruising Aller/Immun Denies wheezing Physical exam (Primary Care) Vital Signs: Last Vital Signs Temp 97.6 F 02/06/25 08:01 Pulse 154 H 02/06/25 08:01 Resp 16 02/06/25 08:01 BP 135/72 02/06/25 08:01 Pulse Ox 100 02/06/25 08:01 Oxygen Delivery Method Room Air 02/06/25 08:01 BMI result Body Mass Index 36.2 Tobacco/Smoking Status: Tobacco use Status Tobacco use date assessed 02/06/25 02/06/25 08:04 Patient Tobacco Use Status Never used Tobacco 02/06/25 07:55 e-Cigarette/Vaping Use Never Used 02/06/25 07:55 Depression Screening Interpretation: Positive Depression Screening Follow-up: Existing condition and In treatment Thrive Assessment: Date of Thrive Assessment Date Thrive assessed 02/06/25 02/06/25 08:05 Currently or been in a relationship where the following occur: No concerns reported Const Other: General: no acute distress, well developed, alert and awake Nutritional Appearance: well nourished Orientation/consciousness: patient oriented x3 HENMT Head: Yes normocephalic and Yes atraumatic Ears: hearing grossly normal bilaterally and TM's normal bilaterally General nose exam: Normal external nose present and Normal nares present Mouth: Normal oral and palatal mucosa present and moist mucous membranes Teeth and gingiva: dentition normal Throat: Yes oropharynx normal Eyes Pupils: Equal, round and reactive pupils present and Pupil accommodation reflex normal EOM: EOMs intact bilaterally Neck Neck: Yes normal visual inspection, Yes no lymphadenopathy and Yes trachea midline Thyroid: Thyroid normal Carotids: no bruits Lymphatic: no lymphadenopathy noted Chest Chest palpation & inspection: normal inspection of the chest Resp Effort & Inspection: normal respiratory effort Auscultation: clear to auscultation bilaterally Cardio Rate: regular rate Rhythm: regular rhythm Heart sounds: S1 normal heart sound present, S2 normal heart sound present, no gallops, no murmurs and no rubs Bruits: no abdominal aortic bruits and no carotid bruits GI Palpation (GI): No Abdominal aortic bruit present, Soft to palpation, nontender, No hepatosplenomegaly present and No Rebound tenderness present Auscultation: normal bowel sounds General: Yes no CVA tenderness Back/Spine/Pelvis Back: no CVA tenderness Cervical Spine: cervical ROM normal and No Cervical spine tenderness Thoracic/Lumbar Spine: thoraco-lumbar ROM normal, No pain with thoraco-lumbar ROM, No thoracic spinal tenderness and No lumbar spinal tenderness Skin General: warm and dry. Normal skin color. Normal skin turgor Lesions: no lesions Rashes: no rashes Trauma: no lacerations or abrasions Wounds: no wounds Nails: normal Neuro General: patient oriented x3, gait normal and CN's II-XI intact bilaterally Cranial nerves: Yes Equal, round and reactive pupils present Cognition (Neuro): normal cognition Gait exam (Neuro): Normal gait present Motor exam (neuro): 5/5 motor strength present throughout Sensory Exam: No Sensory deficit (Neuro) Deep tendon reflexes (DTR's): Right patellar reflex intensity grade: 2+ and Left patellar reflex intensity grade: 2+ Extrem General: Yes normal to inspection, No edema and No calf tenderness Psych Appearance: grossly normal Affect: normal affect Attitude: cooperative Thought process: Normal thought process present Coding Level of Care Code Est Pt Level 3 (37385) Est Pt Prev Care 40-64y(26541) Diagnoses Normal physical exam Z00.00 Hypercholesterolemia E78.00 Anxiety F41.9 Additional Codes AFTAB-7 Assessment Billing - AFTAB-7 Assessment Tool: AFTAB-7 Assessment 12109 ([id number]) PHQ-9 - 39583 - PHQ-9 Billing: Yes ([id number]) Assessment & Plan Assessment & Plan (1) Normal physical exam: Code(s): Z00.00 - Encounter for general adult medical examination without abnormal findings Category: Medical Plan: No significant functional limitations noted. Continue current treatment regimen. Healthy diet and routine exercise encouraged. Continue follow-up with specialists as planned. Perform fasting lipid panel blood work and follow-up for transfer of care and hyperlipidemia in 3 months. Return sooner with symptoms or concerns. Verbalized understanding and agreed with plan. (2) Hypercholesterolemia: Code(s): E78.00 - Pure hypercholesterolemia, unspecified Category: Medical Plan: Recent total cholesterol and LDL level in October were 230 and 142 respectively. Likely induced due to metabolic demand of the fetus. Patient was 19 weeks . Advised to limit foods high in saturated fat and avoid foods high in trans fat. Routine exercise encouraged. Fast for 10-12 hours, may drink water, and perform lipid panel blood work a few days before next visit. Follow-up for transfer of care hyperlipidemia in 3 months. Return sooner with symptoms or concerns. Verbalized understanding and agreed with the plan. (3) Anxiety: Code(s): F41.9 - Anxiety disorder, unspecified Category: Medical Plan: She notes that she is nervous due to medical visits and due to frequent build and release manager follow ups during this . She is almost 33 weeks with a boy and healthy thus far. Her due date is 03/29/2025. She is excited but a little anxious about the labor process. She denies depression. Denies SI/HI/AVH. PHQ-9 and AFTAB-7 scores revealed mild depression and severe anxiety respectively. Continue current treatment regimen. Routine exercise encouraged. Follow-up with psychiatrist and therapist as planned. Verbalized understanding and agreed with the plan. Orders: Orders Lipid Panel 3 Months E78.00 - Pure hypercholesterolemia, unspecified
[2025-02-06 08:01] VITALS: BP 135/72; PULSE 154; RESP 16; TEMP 36.4; O2SAT 100; BMI 36.2
[2025-02-06 08:19] VITALS: PULSE 100
== END 2025-02-06 08:37 | disposition home or self-care (01) ==
LOC: HO.HMCFM 07:51
PROVIDERS: PCP Nurse Practitioner Family; Visit Provider Nurse Practitioner Family
DX: Z00.00 Encounter for general adult medical examination without abnormal findings (principal); E78.00 Pure hypercholesterolemia, unspecified; F41.9 Anxiety disorder, unspecified; Z3A.33 33 weeks gestation of pregnancy

== ENCOUNTER → 2025-02-06 07:50 | Outpatient (BNVA) | payer OTHER, SELFPAY | PROVIDERS: PCP Nurse Practitioner Family; Visit Provider Nurse Practitioner Family | DX: Z00.00 Encounter for general adult medical examination without abnormal findings (principal); E78.00 Pure hypercholesterolemia, unspecified; F41.9 Anxiety disorder, unspecified; Z79.899 Other long term (current) drug therapy | CPT/HCPCS: 96127 ==